=== PATIENT | female | born 1960 | race Caucasian/White ===

== ENCOUNTER → 2017-10-01 10:24 | Outpatient (CLI) | payer OTHER, SELFPAY ==
--- NOTE | 2017-10-01 10:35 | RAD_ITS ---
STUDY: X-RAY - THORACIC SPINE REASON FOR EXAM: Female, 57 years old. Fall. Pain. TECHNIQUE: 3 view(s) of the thoracic spine were obtained. COMPARISON: None. FINDINGS: Normal kyphosis of the thoracic spine. There is no substantial scoliosis. There is multilevel endplate spondylosis of the thoracic vertebrae. Normal disc space heights. The soft tissue structures are unremarkable. RAD/Thoracic Spine 3 Views IMPRESSION: No acute abnormality. Electronically Signed: Manuelito Garcia MD at 18:09 EST , Service support ,
--- NOTE | 2017-10-01 10:35 | RAD_ITS ---
STUDY: X-RAY - LUMBAR SPINE REASON FOR EXAM: Female, 57 years old. Fall. Low back pain. TECHNIQUE: 3 view(s) of the lumbar spine were obtained. COMPARISON: None FINDINGS: Normal lumbar lordosis. Mild dextroconvex scoliosis.. There is a normal alignment of the vertebrae. There is multilevel endplate spondylosis of the lumbar vertebrae. Moderate narrowing of the disc at L5-S1. Mild disc narrowing at all other levels. No compression fractures. The soft tissue structures are unremarkable. RAD/Lumbar Spine 2 or 3 Views IMPRESSION: Relatively mild degenerative changes with no acute abnormality. Electronically Signed: Manuelito Garcia MD at 19:40 EST , Service support ,
--- NOTE | 2017-10-01 10:35 | RAD_ITS ---
STUDY: X-RAY - UNILATERAL RIBS ( LEFT ) WITH CHEST REASON FOR EXAM: Female, 57 years old. Fall. Pain. TECHNIQUE - RIBS: 4 view(s) of the ribs. TECHNIQUE - CHEST: Single frontal view of the chest. COMPARISON: 06/29/2014. FINDINGS - RIBS: Normal visualized ribs without a demonstrated fracture. FINDINGS - CHEST: The lungs are clear and expanded. There is no demonstrated pleural abnormality. Normal size heart. Normal mediastinum and chloé. Normal visualized pulmonary arteries. Normal visualized aortic arch and descending thoracic aorta. Normal visualized thoracic spine. Normal visualized ribs, clavicles, and shoulders. There is no demonstrated abnormality of the visualized soft tissue structures of the upper abdomen. RAD/Ribs Uni Min 3V w/PA Chest IMPRESSION: RIBS: Normal x-ray examination of the ribs. CHEST: Normal x-ray examination of the chest. Electronically Signed: Manuelito Garcia MD at 19:27 EST , Service support ,
== END ==
PROVIDERS: Family Provider Family Medicine Geriatric Medicine; PCP Family Medicine Geriatric Medicine; Visit Provider Family Medicine Geriatric Medicine
DX: M54.6 Pain in thoracic spine (principal); M54.5 Low back pain; R07.89 Other chest pain; W19.XXXA Unspecified fall, initial encounter
CPT/HCPCS: 71101; 72072; 72100

== ENCOUNTER 2017-12-24 07:18 | Outpatient (RCR) | payer OTHER, SELFPAY ==
--- NOTE | 2017-12-24 10:47 | HP.FCE ---
HP OT Functional Capacity Eval - Task Lift Floor (Occasional 1-33% of Day): 35 lbs Floor (Frequent 34-66% of Day): 18 lbs Floor (Constant 67-100% of Day): 7 lbs Floor PDL: Light-Medium Knee (Occasional 1-33% of Day): 35 lbs Knee (Frequent 34-66% of Day): 18 lbs Knee (Constant 67-100% of Day): 7 lbs Knee PDL: Light-Medium Waist (Occasional 1-33% of Day): 35 lbs Waist (Frequent 34-66% of Day): 18 lbs Waist (Constant 67-100% of Day): 7 lbs Waist PDL: Light-Medium Shoulder (Occasional 1-33% of Day): 25 lbs Shoulder (Frequent 34-66% of Day): 12.5 lbs Shoulder (Constant 67-100% of Day): negligible Shoulder PDL: Light Overhead (Occasional 1-33% of Day): 25 lbs Overhead (Frequent 34-66% of Day): 12.5 lbs Overhead (Constant 67-100% of Day): negligible Overhead PDL: Light Comments: Given the performance of the lifting section of this test, Margareth is able to complete light to medium light work at this time. Body mechanics are variable and pain increased with lifting tasks. - Work Activity/Posture Bending: Frequent Ability (34-66% of day) Comments: 34-35%; bending increased pain and should be kept to minimum. Squatting: Frequent Ability (34-66% of day) Comments: 34-40%; increased pain. Kneeling: No Ablility (0% of day) Reaching out: Frequent Ability (34-66% of day) Reaching up: Frequent Ability (34-66% of day) Sitting: Frequent Ability (34-66% of day) Walking: Frequent Ability (34-66% of day) Standing: Frequent Ability (34-66% of day) - Reference Duration Sedentary Sedentary Light Light Light Medium Medium Medium Heavy Very Heavy Heavy Occasional (0-33% of day) Frequent (34-66% of day) Constant (67-100% of day) 10 # Negligible Negligible 15 # 8 # Negligible 20 # 10# Negli. 35 # 18 # 7 # 50 # 25 # 10 # 75 # 100 # >100 # 38 # 50 # >50 # 15 # 20 # >20 # - Patient Information Height: 1.7 m Weight:: 260 kg Hand Dominance: R - Medical History Medical History Including Restrictions: Noted that for work Dr. Jaramillo has 20 lbs weight restriction for work. She noted that restriction isn't applicable today as Dr. Jaramillo wants to know how much she can do. - Diagnoses Diagnoses: PMHx: compression fracture at T12, L rotator cuff tear (February 2017 and has been recieving steroid injections because trying not to get surgery), DM II with neuropathy, HPL, HTN. - Symptoms Symptoms: Symptoms started October Pt. had fall in bathroom which resulted in T12 compression fracture. Her main symptoms are pain and muscle spasms in mid to low back. She notes that sometimes the spasms feel like tight band and other times go toward buttocks. Notes has increased numbness and tingling of B feet but also has neuropathy and noted difficulty noted difference between neuropathy and back symptoms. - Pain Pain: Pain at rest sitting 0-1/10. 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 She notes that she is back to work and return December 09. She notes she is currently on light duty and FCE is to further determine lifiting ability at this time. She explained she has to lift between 20-70 lbs regualrly at work. She notes that she is required to lift up to 70 lbs, and she notes she averages 5-45 lbs. - Behavioral Behavioral: Margareth was pleasant and cooperative. She was willing to try her best within her pain tolerance. She noted that she has not recieved PT services for this injury. Would potentially benefit from PT at this time. - ADLS ADLS: Margareth resides in one story home with basement. Notes she does not access basement. She has 3-4 steps to get in front door. Once in home she has FFSU. She has regular tub with shower with suction grab bars. She is able to stand for showers. She noted that she is completing all ADl/IADLs independently. She is still grocery shopping short distances or online. She notes she is unable to walk through [employer] and goes to local [employer] for milk and bread. Still driving and notes she walks 1/8 mile to work. Explained if 'really' hurting will drive down because she noted she knows it will be worse when getting off work. - Physical Examination Physical Examination: Pt., Margareth, arrived for E on this date. She noted she was trying to get baseline of what she can vs. cannot do at work. She noted that she has fall November 16, 2017 that resulted in compression fracture of T12 vertebrae. She noted that she has not received PT services and is currently working on light duty. Performance on today's tasks shows she is able to complete medium light to light work related tasks. Pain increased from 4-6/10 pain through out session and she was consistently educated to completed tasks as tolerated. She typcially stands for long periods while working at post office. She would potentially benefit from PT for body masker training and/or aqua therapy program to help decreased back pain and spasms. Pain is limiting at this time and she should not exceed listed categorized work for light to medium light at this time due to further risk of compromising spinal integrity. ROM: BUE: WNL. BLE: WFL. No pain noted with ROM screening movements. Strength: BUE strength MMT: deltoid: R 4+/5; L 4+/5. bicep: R 4+/5; L 4+/5. triceps: R 4+/5; L 4+/5. wrist extension: R 4+/5; L 4+/5. BLE: quadraceps: R 4/5; L 4/5. hamstrings: R 4+/5; L 4+/5. hip adductors: R 4+/5; L 4+/5. hip abductors: R 4+/5; L 4+/5. plantarflexion: R 4+/5; L 4+/5. dorisflexion: R 4+/5; L 4+/5 Right Asp Net Programmer Strength Average: 59.66 Right Asp Net Programmer Strength Percentile: 32nd Left Asp Net Programmer Strength Average: 56.66 Left Asp Net Programmer Strength Percentile: 24 th Right Lateral Pinch Average: 12.66 Right Lateral Pinch Percentile: 50th Left Lateral Pinch Average: 12.33 Left Lateral Pinch Percentile: above 50th but below 75th Right Tripod Pinch Average: 12.33 Right Tripod Pinch Percentile: above 50th but below 75th Left Tripod Pinch Average: 11.00 Left Tripod Pinch Percentile: 50th Sensation: Sensation decreased secondary to neuropathy in B LE. B UE tested through monofilament touch test and is as follows: R: 2nd 2.83 , 3rd 2.83, 4th 3.22, 5th 3.22, thumb 3.22. L: 2nd 3.22 , 3rd 3.22 , 4th 3.22 ,5th 2.83 ,thumb 3.22. Scores indicated WNL for B Hands. Fine Motor: FMC is intact and WNL. Balance: Balance is good/fair+ at this time. She exhibits need for external support when standing on 1x foot but is WFL. - Non Material Handling Activities Bendinx, pain in back to 4/10, 10x , pain in back increased to 5/10 shairt standing break, and 10x quick. Pt. exhibits fair-good body mechanics. Needs to complete at decreased speed. Increased pain noted through repetitions. Pain limiting at this time. Recommedned limited bend for job based on performance. Squattinx, 10x, 10x fast short seated break prior to continuing. Completed with good body mechanics and adequet RICHELLE, knee flexion, and slight trunk flexion with spinal alignment. Kneelinx,10x. poor body mechanics. Not recommended to be completing at this time. Pain in back increased to 6/10. Notes increased pulling to L side. Seated break after task. Pain limiting at this time. Reaching out/up: from standing position: reaching out: 3x,10x, 10x fast. Good body mechanics. Noted no increased in pain. Pain consistent at 4/10. Reaching up: 3x,10x, 10x fast. Good body mechanics. Noted no increased in pain. Pain consistent at 4/10. Nots some increased pulling. Seated break post completion of tasks. Walking: completed 15 mins of consistently walking. Exhibited antaglic gait. Notes she used to walk a couple times a week but is unable to complete now due to moving to new location and back pain. Completed fx mobility of 6 laps around facility at decreased pace. Totaling 340 feet per lap and 2,040 feet for 6 total laps. With additional walking in and out of OT. Standing: Able to stand for 15 consistent mins during dynamic tasks and 10 mins for static at table top. Is required to stand approximately 8 hours per day and has been completing since back to work. She noted that she can sit sporatically throughout the day. Sitting: Able to tolerate sitting for 30-40 mins. Could have sat longer. She noted that most comfortable position is reclined. Climbing Stairs: Able to complete acending and decending of 10 stairs. She exhibits alternating foot patern with antalgic gait for ascending 10 stairs and used R foot lead to decend 1x stair at a time and use of B handrails. - Dynamic Occasional Lifting Capacity Floor Lift: 35 lbs. Fair body mechanics. Cues to lift with legs and not arms. Completed Pain 6/10. Performance classifies her at medium light work. Knee Lift: 35 lbs. Fair body mechanics as exhibited through increased lifting with straight legs,increased thoraric flexion and decreased spinal alignment. Some increased twisting noted of low back for placement of object in desired location. Pain at 6/10. Performance classifies her at medium light work. Pain is limiting at this time. Waist Lift: 35 lbs. Poor body mechanics as exhibited through increased lifting with straight legs, increased thoraric flexion and decreased spinal alignment. Some increased twisting noted of low back for placement of object in desired location. Pain 6/10. Performance classifies her at medium light work. Pain is limiting at this time. Standing break prior to continuing. Shoulder Lift: 25 lbs. Completed with fair body mechanics. Increased compesantions noted. Pain 6/10. Overhead Lift: 25 lbs. Poor body mechanics. Increased holding of breath, increased trunk extension, and rasing to tip toes. Pain 6/10. Performance classifies at light work at this time. Carryin lbs. Completed with fair body mechanics. Increased trunk ext noted. Pain 6/10 during tasks. Performance classifies at light work at this time.
--- NOTE | 2017-12-24 10:47 | HP.OTFCE.D ---
FCE D/C Summary - Discharge LATISHA J GALINA was seen for a one time visit for an FCE on 12/24/17 and is discharged.
== END 2017-12-24 19:00 | disposition home or self-care (01) ==
LOC: OT 07:18
PROVIDERS: Family Provider Family Medicine Geriatric Medicine; PCP Family Medicine Geriatric Medicine; Visit Provider Anesthesiology Pain Medicine
DX: M54.9 Dorsalgia, unspecified (principal)
CPT/HCPCS: 97750

== ENCOUNTER → 2017-12-24 11:37 | Outpatient (CLI) | payer OTHER, SELFPAY ==
[2017-12-24 12:31] LABS: Absolute Lymphocyte Count 2.52 X10^3/ul (0.83-4.51); Absolute Neutrophil Count 7.5 X10^3/uL (2.0-7.7); Basophil# 0.02 X10^3/uL; Basophil% 0.2 % (0-1); Eosinophil# 0.08 X10^3/uL; Eosinophils% 0.7 % (0-5); Hematocrit 44.8 % (37-47); Hemoglobin 14.2 g/dl (12.0-15.0); Lymphocyte # 2.52 X10^3/ul (4.0); Lymphocyte % 23.5 % (19-41); Mean Corp Hgb Conc 31.7 g/gl (32-36); Mean Corpuscular Hgb 29.8 pg (27.0-32.0); Mean Corpuscular Volume 93.9 fL (81-99); Mean Platelet Vol. 10.8 fl (6.2-12.0); Monocyte% 5.6 % (0-10); Neutrophil # 7.47 X10^3/uL (2.7-7.7); Neutrophil % 69.5 % (47-70); POSITIVE COUNT NO; POSITIVE DIFFERENTIAL NO; POSITIVE MORPHOLOGY NO; Platelet Count 295 K/mm3 (150-450); RBC Distribution Width CV 14.6 % (11.6-14.6); RBC Distribution Width SD 48.4 fl (35.1-43.9); Red Blood Count 4.77 M/mm3 (4.2-5.4); White Blood Count 10.7 K/mm3 (4.4-11.0)
[2017-12-24 12:54] LABS: AST(SGOT) 16 U/L (15-37); Alanine Aminotransfer ALT/SGPT 32 U/L (13-56); Albumin, Serum 3.5 g/dL (3.2-5.0); Alkaline Phosphatase 95 U/L (45-117); Anion Gap 8 (5-15); BUN 14 mg/dL (7-18); BUN/Creat Ratio 14.7 RATIO (10-20); Calcium,Total 8.5 mg/dL (8.5-10.1); Chloride 106 mmol/L (98-107); Creatinine, Serum 0.95 mg/dL (0.55-1.02); EST Glomerular Filtration Rate 64 mL/min (>60); Est Glom Filt Rate - Afr Amer 78 mL/min (>60); Globulin 3.6 g/dL (2.2-4.2); Glucose 155 mg/dL (74-106); Protein, Total 7.1 g/dL (6.4-8.2); Sodium Level 141 mmol/L (136-145); Thyroid Stim Hormone (TSH) 1.95 uIU/mL (0.358-3.74)
[2017-12-25 08:46] LABS: Vitamin D,25 Hydroxy 28.2 ng/mL (29.95-100.01)
== END ==
PROVIDERS: Family Provider Family Medicine Geriatric Medicine; PCP Family Medicine Geriatric Medicine; Visit Provider Family Medicine Geriatric Medicine
DX: I10 Essential (primary) hypertension (principal); E11.9 Type 2 diabetes mellitus without complications; E55.9 Vitamin D deficiency, unspecified
CPT/HCPCS: 36415; 80053; 82306; 84443; 85025

== ENCOUNTER → 2018-02-04 14:50 | Outpatient (CLI) | payer OTHER, SELFPAY ==
--- NOTE | 2018-02-04 14:54 | RAD_ITS ---
STUDY: X-RAY - LUMBAR SPINE REASON FOR EXAM: Female, 57 years old. Back pain. Recent T12 kyphoplasty. TECHNIQUE: 2 view(s) of the lumbar spine were obtained. COMPARISON: October 01, 2017. FINDINGS: Mild convex right lumbar curvature unchanged. Minimal multilevel disc space narrowing with minimal marginal osteophytes at several levels in the lumbar spine. Postkyphoplasty changes T12.. RAD/Lumbar Spine 2 or 3 Views IMPRESSION: Stable mild degenerative changes of the lumbar spine. Postkyphoplasty changes T12. Electronically Signed: Reji Huntley MD at 8:01 EDT , Service support ,
--- NOTE | 2018-02-04 15:16 | RAD_ITS ---
STUDY: X-RAY - THORACIC SPINE REASON FOR EXAM: Female, 57 years old. Back pain and recent kyphoplasty T12. TECHNIQUE: 3 view(s) of the thoracic spine were obtained. COMPARISON: October 01, 2017. FINDINGS: Normal kyphosis of the thoracic spine. There is no substantial scoliosis. Post kyphoplasty changes T12 with mild anterior wedging of this vertebral body. Marginal osteophytes at several levels in the thoracic spine most prominent at T9-T10 unchanged. The soft tissue structures are unremarkable. RAD/Thoracic Spine 2 Views IMPRESSION: Multilevel degenerative changes of the thoracic spine which have remained stable. Post kyphoplasty changes T12. Electronically Signed: Reji Huntley MD at 8:03 EDT , Service support ,
== END ==
PROVIDERS: Family Provider Family Medicine Geriatric Medicine; PCP Family Medicine Geriatric Medicine; Visit Provider Anesthesiology Pain Medicine
DX: M54.9 Dorsalgia, unspecified (principal)
CPT/HCPCS: 72070; 72100

== ENCOUNTER 2018-04-02 10:00 | Outpatient (RCR) | payer OTHER, SELFPAY ==
--- NOTE | 2018-02-25 09:48 | HP.PTEVAL ---
Patient's Visit Information LATISHA MOJICA is a 57 year old F referred to Physical Therapy by Miky Jaramillo with a diagnosis of Back Pain. Date of Evaluation: 02/25/18 Physical Therapist: Kristi Cooper - Visit Plan Frequency: 2x /Week Duration: 4 Weeks Plan: Focus on core s/s- lifting mechanics for work. - Subjective Subjective: Fell at the end of October and had a compression fracture in her back. Getting up to go to the bathroom and has a small step and didn't make it over the ledge and she landed on the bathroom floor. 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 Current restriction is #20-30. Is currently light duty- she basically does the same thing she just has someone else lift if its heavy. Ultimate goal is to get back to full duty as quickly as possible. Is currently taking Tramadol and she does not want to be on pain medication. Had mild back pain with oa before the fall but nothing like it is now. After the kyphopasty she felt like someone stuck a board in her back. Worst: 6/10 Agg: bending forwards, lifting. Eases: home at lunch sits in her reclyner and puts her feet up Best: 0/10 at night when sitting in her chair. The pain is in the lower thoracic and lumbar spine- Has had radiating pain to the knee but it goes away quickly. Can walk out the radiating pain. N/T due to neuropathy no changes since the back. Describes the pain as dull and achy- feel like someone put something in her back to keeps her stiff. Sleep: not disturbed- belly or side sleeper. No loss or change of bowel/bladder. She was very active before the accident- working a lot and walking the trail. PMHx: HTN, high cholesterol, DM, appendix removal, pronation of the feet, heel spurs, plantar fascititis. Meds: potassium, propanolol, hydrochlorothiazide, vit d, ultram, celexa, levothyroxin, Tramadol, pyrothoazide. X-rays last taken February 04- CT Scan in [place] November 16. - Objective Posture: sitting/standing- poor- FH, RS, Increased kyphosis- can correct but does not maintain. Gait: toes turned outwards- decreased trunk rotation and arm swing- stiff- decreased nat. HR/TR: able with UE A. SLS: WS but unable to SLS without UE A- right easier than left. Sensation: WNL. Reflexes: intact. ROM: Lumbar: flexion: hands to mid santos with reports of pain (5/10) Extn: WNL but reports discomfort. SB: WNL with pain to the right (4/10), Rotation: decreased by 25% with no reports of pain. Hip/Knee/Ankle: WNL. Strength: core: poor, Hip: left: 4-/5 throughout right: 4/5 throughout, Knee: 4+/5, Ankle: 4+/5. Palpation: Tender along paraspinals from T8-L5 with discomfort along spinous processes. Special Test: slump- postive on the left. Flex: HS: mild restriction, Gastroc: mild restriction - Goals Goal 1:: Patient will be I with HEP and progression Goal Time Frame: 4-6 Weeks Goal 2:: Patient will maintain proper posture t/o tx session to demo increased core s/s. Goal Time Frame: 4-6 Weeks Goal 3:: Patient will lift #50 box safely from floor to waiste x 3 to simulate work activities Goal Time Frame: 4-6 Weeks Goal 4:: Patient will report 2/10 pain for 1 week Goal Time Frame: 4-6 Weeks - Rehabilitation Potential Physical Therapy Diagnosis: Patient presents with hypmobility- she has decreased ROM, strength/stabilization, flex and muscular endurance leading to poor posture and increased pain. Rehabilitation Potential: Fair - Anticipated Interventions Patient/Client Instruction: Educate patient on: Benefits of Fitness Program For the Purpose of:: To improve ability to perform ADL's Therapeutic Exercise to Include: Strength training, Endurance training, Balance training, Agility training, Body mechanics, Postural training, Flexibilty training, Gait and locomotor training, Dynamic Lumbar Stabilization, Scapular Strength/Stabilization For the Purpose of:: To improve muscle performance and motor function TENS: Yes Cryotherapy (ice pack, ice massage): Yes Thermo therapy (hot pack): Yes Ultrasound (thermal/non thermal): Yes For the Purpose of:: To decrease pain Thank you for the opportunity to evaluate your patient. For Medicare and Medicare HMO plans, please review the plan of care and approve it. It will need to be FAXED BACK to us at [phone] for Medicare purposes. Please let me know if there are questions or concerns regarding this plan of care. Physician Signature: Date:
--- NOTE | 2018-04-02 10:34 | HP.PTDCSUM ---
HP - PT D/C Summary It has been my pleasure to treat LATISHA MOJICA under orders from Miky Jaramillo, for the diagnosis of Back Pain for a total of 9 visit(s). Discharge Date: Please see the following information for a summary of their discharge status. - Subjective Subjective: Elmer reports that she is doing much better. At work last week she was hurting from carrying a big box. Worst: 3/10 at 3:00 in the afternoon after standing and lifting at work. Feels that she can continue HEP with no question. Has not been taking Tramadol and only Tylenol and Ibuprofen. - Pain LB Pain Intensity (Out of 10): 0 - Overall Improvement % Improvement: 90 - Objective Objective/Function: Posture: sitting/standing- poor- FH, RS, Increased kyphosis- can correct but does not maintain. Gait: wfl. HR/TR: able with UE A. SLS: 3 seconds bilaterally. Sensation: WNL. Reflexes: intact. ROM: Lumbar: flexion: hands to mid santos with reports of pain (2/10) Extn: WNL but reports discomfort. SB: WNL with pain to the right (2/10), Rotation: decreased by 25% with no reports of pain. Hip/Knee/Ankle: WNL. Strength: core: fair, Hip: left: 4/5 throughout right: 4+/5 throughout, Knee: 5/5, Ankle: 5/5. Palpation: Tender along paraspinals from T8-L5 with discomfort along spinous processes. Special Test: slump- postive on the left. Flex: HS: mild restriction, Gastroc: mild restriction - Goals Goal 1:: Patient will be I with HEP and progression Goal Progress: Goal Met Goal 2:: Patient will maintain proper posture t/o tx session to demo increased core s/s. Goal Progress: Progressing Goal 3:: Patient will lift #50 box safely from floor to waiste x 3 to simulate work activities Goal Progress: Progressing Goal 4:: Patient will report 2/10 pain for 1 week Goal Progress: Progressing - Plan Plan: Discharge to I HEP - D/C Information If there are questions or concerns regarding this patient's physical therapy, please feel free to call me at [phone]. Thank you for the referral of this patient. Sincerely, Kristi Cooper
== END 2018-04-02 10:39 | disposition home or self-care (01) ==
LOC: PT 10:00
PROVIDERS: Family Provider Family Medicine Geriatric Medicine; PCP Family Medicine Geriatric Medicine; Visit Provider Anesthesiology Pain Medicine
DX: M54.9 Dorsalgia, unspecified (principal)
CPT/HCPCS: 97110; 97162; 97164

== ENCOUNTER → 2018-06-30 13:07 | Outpatient (CLI) | payer OTHER, SELFPAY ==
[2018-06-30 14:37] LABS: Absolute Lymphocyte Count 2.07 X10^3/ul (0.83-4.51); Absolute Neutrophil Count 5.6 X10^3/uL (2.0-7.7); Basophil# 0.02 X10^3/uL; Basophil% 0.2 % (0-1); Eosinophil# 0.13 X10^3/uL; Eosinophils% 1.6 % (0-5); Hematocrit 42.8 % (37-47); Hemoglobin 13.2 g/dl (12.0-15.0); Lymphocyte # 2.07 X10^3/ul (4.0); Lymphocyte % 24.9 % (19-41); Mean Corp Hgb Conc 30.8 g/gl (32-36); Mean Corpuscular Volume 94.1 fL (81-99); Mean Platelet Vol. 10.9 fl (6.2-12.0); Monocyte# 0.47 X10^3/uL; Monocyte% 5.7 % (0-10); Neutrophil % 67.4 % (47-70); Platelet Count 269 K/mm3 (150-450); RBC Distribution Width CV 14.8 % (11.6-14.6); RBC Distribution Width SD 50.5 fl (35.1-43.9); Red Blood Count 4.55 M/mm3 (4.2-5.4); White Blood Count 8.3 K/mm3 (4.4-11.0)
[2018-06-30 14:39] LABS: POSITIVE COUNT NO; POSITIVE DIFFERENTIAL NO; POSITIVE MORPHOLOGY NO
[2018-06-30 14:46] LABS: Albumin, Serum 3.4 g/dL (3.2-5.0); BUN 10 mg/dL (7-18); BUN/Creat Ratio 11.2 RATIO (10-20); Creatinine, Serum 0.89 mg/dL (0.55-1.02); EST Glomerular Filtration Rate 69 mL/min (>60); Est Glom Filt Rate - Afr Amer 84 mL/min (>60); Glucose 137 mg/dL (74-106); Protein, Total 6.7 g/dL (6.4-8.2)
[2018-06-30 14:47] LABS: AST(SGOT) 14 U/L (15-37); Alanine Aminotransfer ALT/SGPT 26 U/L (13-56); Alkaline Phosphatase 110 U/L (45-117); Anion Gap 9 (5-15); Calcium,Total 8.7 mg/dL (8.5-10.1); Chloride 108 mmol/L (98-107); Globulin 3.3 g/dL (2.2-4.2); Potassium 3.9 mmol/L (3.5-5.1); Sodium Level 146 mmol/L (136-145); Thyroid Stim Hormone (TSH) 1.55 uIU/mL (0.358-3.74)
[2018-06-30 14:48] LABS: Vitamin D,25 Hydroxy 30.6 ng/mL (29.95-100.01)
== END ==
PROVIDERS: Family Provider Family Medicine Geriatric Medicine; PCP Family Medicine Geriatric Medicine; Visit Provider Family Medicine Geriatric Medicine
DX: E55.9 Vitamin D deficiency, unspecified (principal); I10 Essential (primary) hypertension
CPT/HCPCS: 36415; 80053; 82306; 84443; 85025

== ENCOUNTER → 2018-09-23 16:01 | Outpatient (CLI) | payer OTHER, SELFPAY ==
--- NOTE | 2018-09-23 16:05 | RAD_ITS ---
HISTORY: osteoarthritis of left knee, pain since fall several months ago COMPARISON: None FINDINGS: XR left knee 4 views No fracture, dislocation, or acute disease. Joint spaces appear preserved. The distal femoral metaphysis shows faint paracortical soft tissue calcification in the region of the proximal MCL compatible with old injury. Mild spurring of the anterior aspect of the patella both superiorly and inferiorly. The patellofemoral joint space appears preserved. No joint effusion. RAD/Knee 4 or More Views IMPRESSION: 1. No fracture or acute disease. 2. Old MCL injury is suggested. 3. Mild patellar spurring. at 0643 Reported and signed by: Margarito Mccormick MD Electronically Signed: Margarito Mccormick, at 6:42 EST Tel , Service support ,
--- NOTE | 2018-09-23 16:15 | RAD_ITS ---
HISTORY: left foot pain ever since fall several months ago COMPARISON: None FINDINGS: XR left foot 3 views No fracture, dislocation, or acute disease. Joint spaces appear preserved. No bony erosions. Large plantar calcaneal spur. No radiopaque foreign body. RAD/Foot min 3 Views IMPRESSION: 1. No fracture or acute disease. 2. Large plantar calcaneal spur. Otherwise negative exam. at 0637 Reported and signed by: Margarito Mccormick MD Electronically Signed: Margarito Mccormick, at 6:36 EST Tel , Service support ,
== END ==
PROVIDERS: Family Provider Family Medicine Geriatric Medicine; PCP Family Medicine Geriatric Medicine; Referring Provider Family Medicine Geriatric Medicine; Visit Provider Family Medicine Geriatric Medicine
DX: M17.9 Osteoarthritis of knee, unspecified (principal); M79.609 Pain in unspecified limb
CPT/HCPCS: 73564; 73630

== ENCOUNTER → 2018-12-23 16:20 | Outpatient (CLI) | payer OTHER, SELFPAY ==
[2018-12-23 17:27] LABS: Absolute Lymphocyte Count 2.13 X10^3/ul (0.83-4.51); Absolute Neutrophil Count 3.9 X10^3/uL (2.0-7.7); Basophil# 0.02 X10^3/uL; Basophil% 0.3 % (0-1); Eosinophil# 0.13 X10^3/uL; Eosinophils% 1.9 % (0-5); Hematocrit 39.7 % (37-47); Hemoglobin 12.2 g/dl (12.0-15.0); Lymphocyte # 2.13 X10^3/ul (4.0); Lymphocyte % 31.7 % (19-41); Mean Corp Hgb Conc 30.7 g/gl (32-36); Mean Corpuscular Hgb 28.5 pg (27.0-32.0); Mean Corpuscular Volume 92.8 fL (81-99); Mean Platelet Vol. 11.4 fl (6.2-12.0); Monocyte# 0.49 X10^3/uL; Monocyte% 7.3 % (0-10); Neutrophil # 3.93 X10^3/uL (2.7-7.7); Neutrophil % 58.7 % (47-70); Platelet Count 201 K/mm3 (150-450); RBC Distribution Width CV 14.8 % (11.6-14.6); RBC Distribution Width SD 48.7 fl (35.1-43.9); Red Blood Count 4.28 M/mm3 (4.2-5.4); White Blood Count 6.7 K/mm3 (4.4-11.0)
[2018-12-23 17:30] LABS: POSITIVE COUNT NO; POSITIVE DIFFERENTIAL NO; POSITIVE MORPHOLOGY NO
[2018-12-23 17:54] LABS: Vitamin D,25 Hydroxy 30.3 ng/mL (29.95-100.01)
[2018-12-23 18:29] LABS: AST(SGOT) 29 U/L (15-37); Alanine Aminotransfer ALT/SGPT 51 U/L (13-56); Albumin, Serum 3.3 g/dL (3.2-5.0); Alkaline Phosphatase 95 U/L (45-117); Anion Gap 8 (5-15); BUN 12 mg/dL (7-18); BUN/Creat Ratio 13.6 RATIO (10-20); Calcium,Total 8.3 mg/dL (8.5-10.1); Chloride 109 mmol/L (98-107); Creatinine, Serum 0.88 mg/dL (0.55-1.02); EST Glomerular Filtration Rate 70 mL/min (>60); Est Glom Filt Rate - Afr Amer 85 mL/min (>60); Globulin 3.2 g/dL (2.2-4.2); Glucose 129 mg/dL (74-106); Potassium 4.1 mmol/L (3.5-5.1); Protein, Total 6.5 g/dL (6.4-8.2); Sodium Level 145 mmol/L (136-145); Thyroid Stim Hormone (TSH) 2.02 uIU/mL (0.358-3.74)
== END ==
PROVIDERS: Family Provider Family Medicine Geriatric Medicine; PCP Family Medicine Geriatric Medicine; Visit Provider Family Medicine Geriatric Medicine
DX: E11.9 Type 2 diabetes mellitus without complications (principal); E55.9 Vitamin D deficiency, unspecified; I10 Essential (primary) hypertension
CPT/HCPCS: 36415; 80053; 82306; 84443; 85025

== ENCOUNTER → 2019-05-05 15:05 | Outpatient (CLI) | payer OTHER, SELFPAY ==
--- NOTE | 2019-05-05 15:10 | RAD_ITS ---
STUDY: X-RAY - LUMBAR SPINE REASON FOR EXAM: Female, 58 years old. Low back pain TECHNIQUE: 3 view(s) of the lumbar spine were obtained. COMPARISON: None FINDINGS: Normal lumbar lordosis. There is mild dextro scoliosis. There is a normal alignment of the vertebrae. Mild multilevel disc space narrowing and endplate spurring. Facet arthropathy at L4-5 and L5-S1 No acute fracture or subluxation. Old compression fractures of T12 status post kyphoplasty The soft tissue structures are unremarkable. RAD/Lumbar Spine 2 or 3 Views IMPRESSION: Scoliosis and degenerative change. No evidence for acute fracture or other significant bony pathology old compression fracture of T12 status post kyphoplasty Electronically Signed: Chavo Zapata MD at 15:54 EDT , Service support ,
--- NOTE | 2019-05-05 15:19 | RAD_ITS ---
STUDY: X-RAY - PELVIS AND BILATERAL HIPS REASON FOR EXAM: Female, 58 years old. Bilateral hip pain worse on the left TECHNIQUE: AP view of the pelvis.? 2 views of the right hip, and 2 views of the left hip were obtained. COMPARISON: None. FINDINGS: There is a non-specific bowel gas pattern. Normal visualized soft tissue structures. Normal bilateral iliac wings, sacroiliac joints and visualized sacrum. Normal bilateral superior and inferior pubic rami. Normal pubic symphysis. Normal bilateral ischial tuberosities. Normal visualized right femoral head. Superolateral acetabular spurring Normal right hip joint. Normal visualized left femoral head. Superolateral acetabular spurring. Normal left hip joint. RAD/Hips B/L min 2 views w/ Pelvis IMPRESSION: Mild degenerative changes of both hips. No acute fracture or other significant bony pathology. Electronically Signed: Chavo Zapata MD at 15:52 EDT , Service support ,
--- NOTE | 2019-05-05 15:28 | RAD_ITS ---
STUDY: X-RAY - THORACIC SPINE REASON FOR EXAM: Female, 58 years old. Back pain TECHNIQUE: 4 view(s) of the thoracic spine were obtained. COMPARISON: None. FINDINGS: Normal kyphosis of the thoracic spine. There is mild levo scoliosis. Old compression of T12 status post kyphoplasty. No evidence for acute fracture or subluxation.. Multilevel disc space narrowing and osteophytic spurring The soft tissue structures are unremarkable. RAD/Thoracic Spine 3 Views IMPRESSION: Scoliosis and degenerative changes. Old compression fracture of T12 status post kyphoplasty No evidence for acute fracture or other significant bony pathology. Electronically Signed: Chavo Zapata MD at 15:55 EDT , Service support ,
== END ==
PROVIDERS: Family Provider Family Medicine Geriatric Medicine; PCP Family Medicine Geriatric Medicine; Referring Provider Family Medicine Geriatric Medicine; Visit Provider Family Medicine Geriatric Medicine
DX: M54.5 Low back pain (principal); M25.559 Pain in unspecified hip
CPT/HCPCS: 72072; 72100; 73521

== ENCOUNTER → 2019-07-06 10:43 | Outpatient (CLI) | payer OTHER, SELFPAY ==
[2019-07-06 12:49] LABS: Absolute Lymphocyte Count 2.43 X10^3/uL (0.83-4.51); Absolute Neutrophil Count 5.4 X10^3/uL (2.0-7.7); Basophil# 0.03 X10^3/uL; Basophil% 0.3 % (0-1); Eosinophils% 1.2 % (0-5); Hematocrit 41.1 % (37-47); Hemoglobin 12.4 g/dL (12.0-15.0); Lymphocyte # 2.43 X10^3/ul (4.0); Lymphocyte % 28.1 % (19-41); Mean Corp Hgb Conc 30.2 g/dL (32-36); Mean Corpuscular Hgb 28.9 pg (27.0-32.0); Mean Corpuscular Volume 95.8 fL (81-99); Mean Platelet Vol. 10.7 fl (6.2-12.0); Monocyte# 0.57 X10^3/uL; Monocyte% 6.6 % (0-10); NRBC Flagged by Analyzer 0 % (0-5); Neutrophil # 5.44 X10^3/uL (2.7-7.7); Platelet Count 266 K/mm3 (150-450); RBC Distribution Width CV 14.1 % (11.6-14.6); RBC Distribution Width SD 49.5 fl (35.1-43.9); Red Blood Count 4.29 M/mm3 (4.2-5.4); White Blood Count 8.6 K/mm3 (4.4-11.0)
[2019-07-06 12:55] LABS: Vitamin D,25 Hydroxy 35.6 ng/mL (29.95-100.01)
[2019-07-06 13:29] LABS: ALB/GLOB Ratio 0.9 RATIO (0.9-2.4); AST(SGOT) 20 U/L (15-37); Alanine Aminotransfer ALT/SGPT 34 U/L (13-56); Albumin, Serum 3.4 g/dL (3.2-5.0); Alkaline Phosphatase 98 U/L (45-117); Anion Gap 7 (5-15); BUN 12 mg/dL (7-18); BUN/Creat Ratio 12.6 RATIO (10-20); Calcium,Total 8.7 mg/dL (8.5-10.1); Chloride 108 mmol/L (98-107); Creatinine, Serum 0.95 mg/dL (0.55-1.02); EST Glomerular Filtration Rate 64 mL/min (>60); Est Glom Filt Rate - Afr Amer 77 mL/min (>60); Globulin 3.6 g/dL (2.2-4.2); Glucose 123 mg/dL (74-106); Potassium 4.1 mmol/L (3.5-5.1); Sodium Level 142 mmol/L (136-145); Thyroid Stim Hormone (TSH) 1.27 uIU/mL (0.358-3.74)
== END ==
PROVIDERS: Family Provider Family Medicine Geriatric Medicine; PCP Family Medicine Geriatric Medicine; Visit Provider Family Medicine Geriatric Medicine
DX: E11.9 Type 2 diabetes mellitus without complications (principal); I10 Essential (primary) hypertension; E55.9 Vitamin D deficiency, unspecified
CPT/HCPCS: 36415; 80053; 82306; 84443; 85025

== ENCOUNTER → 2020-01-05 15:11 | Outpatient (CLI) | payer OTHER, SELFPAY ==
[2020-01-05 16:01] LABS: Absolute Lymphocyte Count 2.13 X10^3/uL (0.83-4.51); Absolute Neutrophil Count 4.9 X10^3/uL (2.0-7.7); Basophil# 0.02 X10^3/uL; Basophil% 0.3 % (0-1); Eosinophil# 0.09 X10^3/uL; Eosinophils% 1.2 % (0-5); Hematocrit 40.2 % (37-47); Hemoglobin 12.6 g/dL (12.0-15.0); Lymphocyte # 2.13 X10^3/ul (4.0); Lymphocyte % 27.8 % (19-41); Mean Corp Hgb Conc 31.3 g/dL (32-36); Mean Corpuscular Hgb 29.2 pg (27.0-32.0); Mean Corpuscular Volume 93.3 fL (81-99); Mean Platelet Vol. 10.6 fl (6.2-12.0); Monocyte# 0.56 X10^3/uL; Monocyte% 7.3 % (0-10); NRBC Flagged by Analyzer 0 % (0-5); Neutrophil # 4.85 X10^3/uL (2.7-7.7); Neutrophil % 63.1 % (47-70); Platelet Count 283 K/mm3 (150-450); RBC Distribution Width CV 14.2 % (11.6-14.6); RBC Distribution Width SD 48.8 fl (35.1-43.9); Red Blood Count 4.31 M/mm3 (4.2-5.4); White Blood Count 7.7 K/mm3 (4.4-11.0)
[2020-01-05 16:18] LABS: Vitamin D,25 Hydroxy 28.5 ng/mL
[2020-01-05 16:24] LABS: AST(SGOT) 23 U/L (15-37); Alanine Aminotransfer ALT/SGPT 38 U/L (13-56); Albumin, Serum 3.5 g/dL (3.2-5.0); Alkaline Phosphatase 108 U/L (45-117); Anion Gap 8 (5-15); BUN 16 mg/dL (7-18); Calcium,Total 8.9 mg/dL (8.5-10.1); Chloride 107 mmol/L (98-107); EST Glomerular Filtration Rate 60 mL/min (>60); Est Glom Filt Rate - Afr Amer 73 mL/min (>60); Globulin 3.5 g/dL (2.2-4.2); Glucose 135 mg/dL (74-106); Potassium 3.8 mmol/L (3.5-5.1); Sodium Level 144 mmol/L (136-145); Thyroid Stim Hormone (TSH) 0.28 uIU/mL (0.358-3.74)
== END ==
PROVIDERS: PCP Family Medicine Geriatric Medicine; Visit Provider Family Medicine Geriatric Medicine
DX: E11.9 Type 2 diabetes mellitus without complications (principal); E55.9 Vitamin D deficiency, unspecified; I10 Essential (primary) hypertension
CPT/HCPCS: 36415; 80053; 82306; 84443; 85025

== ENCOUNTER 2020-06-28 09:30 | Outpatient (RCR) | payer OTHER, SELFPAY ==
[2020-05-26 10:51] VITALS: BMI 42.0
--- NOTE | 2020-06-07 13:52 | HP.OTEVAL ---
Patient's Visit Information LATISHA MOJICA is a 59 year old F, referred to Occupational Therapy by Dr. Kallie Vela DO, with a diagnosis of left medial epicondylitis, ulnar. Date of Evaluation: 06/07/20 Occupational Therapist: Ana Castañeda, RAMANA/Edy, CHT - Subjective This 59 year old female was seen for OT eval with dx of left medial epicondylitis, golfers elbow, left elbow nuritis- pt states this has been bothering her for awhile about two months and continues to struggle with picking up boxes at work. pt works at [employer] and struggles with pain when lifting boxes at times. pt would like to decrease her pain and return to her PLOF. 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 with ADLs and IADls by d/c Goal:: pt will report no pain of left elbow with use of left UE with ADls and IADls by d/c Goal:: pt will demo understanding of medial epi precautions with lifting. 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 with ADLs and IADls. Pt would benefit from skilled OT services 2xweek for 4 weeks. Today thearpsit ed. pt on dx, wrist ergo, and why need of wrist brace during the day and nigth elbow brace to prevent prolonged elbow flex while sleeping. Pt demo understanding. therapist ed. pt on forearm stretches, ulnar nerve glides and ice jackelyn. pt demo understanding and agree to POC. Rehabilitation Potential: Good - Anticipated Interventions A/AAROM/PROM, Strengthening, Modalities, Orthoses, Joint Protection/Energy Conservation, Ergonomic Education - Visit Plan Frequency: 2x /Week Duration: 4 Weeks TEXT: Thank you for the opportunity to evaluate your patient. For Medicare and Medicare HMO plans, please review the plan of care and approve it. It will need to be FAXED BACK to us at [phone] for Medicare purposes. Please let me know if there are questions or concerns regarding this plan of care. Physician Signature: Date:
--- NOTE | 2020-06-28 09:56 | HP.OTDCSUM_ITS ---
It has been my pleasure to treat LATISHA MOJICA under orders from Dr. Kallie Vela DO, for the diagnosis of left medial epicondylitis, ulnar for a total of 4 visit(s). Please see the following information for a summary of their discharge status. 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 right 10# lateral pinch left is 12#. right tripod pinch 12# and left 12# pt demo left elbow ROM WNL. 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 with ADLs and IADls by d/c Goal:: pt will report no pain of left elbow with use of left UE with ADls and IADls by d/c Goal:: pt will demo understanding of medial epi precautions with lifting. Plan: pt to cont. with HEP Discharge Comments: pt completed 4 OT session- we therapy used US, and work ergo. to decrease pts pain and increase pts healing- pt still using wrist brace to prevent repettative wrist flexion with lifting boxes. pt reports she is 90% better and is ind. with ADls and IADLs at this time. Pt to cont with HEP of isometric, use of brace as needed- elbow limitation brace while sleeping to prevent prolonged bending of elbow and ice/heat as needed- pt to cont with HEP and agree to POC of D/C If there are questions or concerns regarding this patient's occupational therapy, please fell free to call me at [phone]. Thank you for the referral of this patient. Sincerely, Ana Castañeda, OTR/L, CHT
== END 2020-06-28 19:00 | disposition home or self-care (01) ==
LOC: OT 09:30
PROVIDERS: PCP Family Medicine Geriatric Medicine; Referring Provider Orthopaedic Surgery; Visit Provider Orthopaedic Surgery
DX: M77.02 Medial epicondylitis, left elbow (principal)
CPT/HCPCS: 97035; 97110; 97140; 97166; 97530

== ENCOUNTER → 2020-07-07 09:16 | Outpatient (CLI) | payer OTHER, SELFPAY ==
[2020-05-26 10:51] VITALS: BMI 42.0
[2020-07-07 12:39] LABS: Absolute Lymphocyte Count 1.65 X10^3/uL (0.83-4.51); Absolute Neutrophil Count 3.2 X10^3/uL (2.0-7.7); Basophil# 0.03 X10^3/uL; Basophil% 0.6 % (0-1); Eosinophil# 0.11 X10^3/uL; Eosinophils% 2.1 % (0-5); Hematocrit 40.6 % (37-47); Hemoglobin 12.2 g/dL (12.0-15.0); Lymphocyte # 1.65 X10^3/ul (4.0); Lymphocyte % 31.1 % (19-41); Mean Corpuscular Volume 93.3 fL (81-99); Mean Platelet Vol. 11.1 fl (6.2-12.0); Monocyte# 0.32 X10^3/uL; NRBC Flagged by Analyzer 0 % (0-5); Neutrophil # 3.15 X10^3/uL (2.7-7.7); Neutrophil % 59.3 % (47-70); Platelet Count 245 K/mm3 (150-450); RBC Distribution Width CV 15.9 % (11.6-14.6); RBC Distribution Width SD 54.2 fl (35.1-43.9); Red Blood Count 4.35 M/mm3 (4.2-5.4); White Blood Count 5.3 K/mm3 (4.4-11.0)
[2020-07-07 13:00] LABS: Vitamin D,25 Hydroxy 27.4 ng/mL
[2020-07-07 13:07] LABS: ALB/GLOB Ratio 1.1 RATIO (0.9-2.4); AST(SGOT) 21 U/L (15-37); Alanine Aminotransfer ALT/SGPT 32 U/L (13-56); Albumin, Serum 3.5 g/dL (3.2-5.0); Alkaline Phosphatase 97 U/L (45-117); Anion Gap 5 (5-15); BUN 11 mg/dL (7-18); BUN/Creat Ratio 11.7 RATIO (10-20); Calcium,Total 8.7 mg/dL (8.5-10.1); Chloride 107 mmol/L (98-107); Creatinine, Serum 0.94 mg/dL (0.55-1.02); EST Glomerular Filtration Rate 65 mL/min (>60); Est Glom Filt Rate - Afr Amer 78 mL/min (>60); Globulin 3.3 g/dL (2.2-4.2); Glucose 204 mg/dL (74-106); Potassium 3.6 mmol/L (3.5-5.1); Protein, Total 6.8 g/dL (6.4-8.2); Sodium Level 140 mmol/L (136-145); Thyroid Stim Hormone (TSH) 3.49 uIU/mL (0.358-3.74)
== END ==
PROVIDERS: PCP Family Medicine Geriatric Medicine; Visit Provider Family Medicine Geriatric Medicine
DX: E11.9 Type 2 diabetes mellitus without complications (principal); E55.9 Vitamin D deficiency, unspecified; I10 Essential (primary) hypertension
CPT/HCPCS: 36415; 80053; 82306; 84443; 85025

== ENCOUNTER → 2020-12-22 16:39 | Outpatient (CLI) | payer OTHER, SELFPAY ==
[2020-05-26 10:51] VITALS: BMI 42.0
--- NOTE | 2020-12-22 16:42 | RAD_ITS ---
STUDY: X-RAY - THORACIC SPINE REASON FOR EXAM: Female, 60 years old. LOW BACK PAIN TECHNIQUE: 3 view(s) of the thoracic spine were obtained. COMPARISON: Comparison is made with prior examination dated 05/05/2019. FINDINGS: Normal kyphosis of the thoracic spine. There is no substantial scoliosis. There is multilevel endplate spondylosis of the thoracic vertebrae. There is multilevel disc space narrowing of the thoracic spine. The patient is status post vertebroplasty of the T12 vertebrae. The soft tissue structures are unremarkable. RAD/Thoracic Spine 2 Views IMPRESSION: Multilevel disc space narrowing and spondylosis. Stable vertebroplasty of the T12 vertebrae. Electronically Signed: Cali Owens MD at 15:18 EDT , Service support ,
--- NOTE | 2020-12-22 16:45 | RAD_ITS ---
STUDY: X-RAY - LUMBAR SPINE REASON FOR EXAM: Female, 60 years old. LOW BACK PAIN TECHNIQUE: 3 view(s) of the lumbar spine were obtained. COMPARISON: Comparison is made with prior study dated 05/05/2019. FINDINGS: Normal lumbar lordosis. There is no substantial scoliosis. There is a normal alignment of the vertebrae. There is multilevel endplate spondylosis of the lumbar vertebrae. There is multi-level degenerative disc disease with multi-level disc space narrowing. Once again, the patient is status post vertebroplasty of the T12 vertebrae. Stable loss of height of the vertebrae. There is a 1.3 cm rounded calcification in the right hemipelvis. This most likely represents a small calcified fibroid. RAD/Lumbar Spine 2 or 3 Views IMPRESSION: Degenerative changes of the spine, as detailed above. Stable loss of height and vertebral plasty of the T12 vertebrae. Electronically Signed: Cali Owens MD at 14:58 EDT , Service support ,
== END ==
PROVIDERS: PCP Family Medicine Geriatric Medicine; Referring Provider Family Medicine Geriatric Medicine; Visit Provider Family Medicine Geriatric Medicine
DX: M54.5 Low back pain (principal)
CPT/HCPCS: 72070; 72100

== ENCOUNTER → 2021-01-05 09:35 | Outpatient (CLI) | payer OTHER, SELFPAY ==
[2020-05-26 10:51] VITALS: BMI 42.0
[2021-01-05 12:33] LABS: Absolute Lymphocyte Count 2.07 X10^3/uL (0.83-4.51); Absolute Neutrophil Count 4.8 X10^3/uL (2.0-7.7); Basophil# 0.03 X10^3/uL; Basophil% 0.4 % (0-1); Eosinophil# 0.13 X10^3/uL; Eosinophils% 1.7 % (0-5); Hematocrit 42.3 % (37-47); Hemoglobin 13.2 g/dL (12.0-15.0); Lymphocyte # 2.07 X10^3/ul (0.83-4.51); Lymphocyte % 27.6 % (19-41); Mean Corp Hgb Conc 31.2 g/dL (32-36); Mean Platelet Vol. 10.6 fl (6.2-12.0); Monocyte% 5.3 % (0-10); NRBC Flagged by Analyzer 0 % (0-5); Neutrophil # 4.83 X10^3/uL (2.7-7.7); Neutrophil % 64.6 % (47-70); Platelet Count 246 K/mm3 (150-450); RBC Distribution Width CV 14.6 % (11.6-14.6); RBC Distribution Width SD 50.1 fl (35.1-43.9); Red Blood Count 4.55 M/mm3 (4.2-5.4); White Blood Count 7.5 K/mm3 (4.4-11.0)
[2021-01-05 12:48] LABS: Vitamin D,25 Hydroxy 20.1 ng/mL
[2021-01-05 12:56] LABS: AST(SGOT) 15 U/L (15-37); Alanine Aminotransfer ALT/SGPT 29 U/L (13-56); Albumin, Serum 3.4 g/dL (3.2-5.0); Alkaline Phosphatase 92 U/L (45-117); Anion Gap 6 (5-15); BUN 20 mg/dL (7-18); BUN/Creat Ratio 23.3 RATIO (10-20); Calcium,Total 9.1 mg/dL (8.5-10.1); Chloride 106 mmol/L (98-107); Creatinine, Serum 0.86 mg/dL (0.55-1.02); EST Glomerular Filtration Rate 72 mL/min (>60); Est Glom Filt Rate - Afr Amer 87 mL/min (>60); Globulin 3.3 g/dL (2.2-4.2); Glucose 174 mg/dL (74-106); Protein, Total 6.7 g/dL (6.4-8.2); Sodium Level 141 mmol/L (136-145); Thyroid Stim Hormone (TSH) 2.68 uIU/mL (0.358-3.74)
== END ==
PROVIDERS: PCP Family Medicine Geriatric Medicine; Visit Provider Family Medicine Geriatric Medicine
DX: I10 Essential (primary) hypertension (principal); E11.9 Type 2 diabetes mellitus without complications; E55.9 Vitamin D deficiency, unspecified
CPT/HCPCS: 36415; 80053; 82306; 84443; 85025

== ENCOUNTER 2021-02-07 17:30 | Outpatient (RCR) | payer OTHER, SELFPAY ==
[2020-05-26 10:51] VITALS: BMI 42.0
--- NOTE | 2021-01-19 18:06 | HP.PTEVAL_ITS ---
Patient's Visit Information LATISHA MOJICA is a 60 year old F referred to Physical Therapy by Dr. Brayden Roblero MD with a diagnosis of LOW BACK PAIN. Date of Evaluation: 01/19/21 Physical Therapist: Ramos Betts, PT, Cert MDT, OCS - Visit Plan Frequency: 2x /Week Duration: 4 Weeks Plan: PT INTERVETIONS DLS ABD/BACK ,POSTURAL EX'S,LE FLEXABLITY /ROM AND MODALTIES NEEDED - Subjective This 60 y/o female presents to physical therapy with low back pain . Patient has had back pain many years . Located pain symmetrical LBP . Patient seen DR showed DDD. Aggravating lifting ,bending and standing. Alleviating rest AND meds. Patient was given initially given prednisone and naprozn . Did provide injection cortisone in knee. Coughing/sneezing-. Bowel/bladder-. Denies parathesia /tingling but does have neuropathy in feet. Patient has compression fracture back had kyphoplasty. Patient symptoms affects sleeping at night. Patient symptoms affects QOL and function and job demnads. SOCIAL: . VOCATION: [employer] - Pain Bilateral Back Pain Intensity (Out of 10): 4 Pain Intensity Range: 10 - Objective POSTURE: mild forward posture ,knee valgus calcaneal valgus ankle. GAIT: reciprocal pattern knee valgus antalgic gait right side. SYMMTRIES : align. PALAPTION: unremarkable. NEURO: C/O parathesia feet from neuopathy, reflexes 2/3 L3-4,L4-5,L5--S1. MMT: quads/hams right 4-/5 ,left 4/5, 4-/5,hip flexion ,hip abd 3+/5,ankle 4/5. AROM: right knee supine flexion 0-90 degrees ,left 0- 110 degrres. FLEXABLITY: hams mild tight - Special Tests L/S Slump test left side: Negative L/S Slump test right side: Negative L/S Left Straight Leg Raise: Negative L/S Right Straight Leg Raise: Negative Lumbar Standing: Flexion - Mechanical Response: No effect Lumbar Standing: Flexion - Symptoms During Testing: No effect Lumbar Standing: Flexion - Symptoms After Testing: No effect Lumbar Standing: Extension - Mechanical Response: No effect Lumbar Standing: Extension - Symptoms During Testing: Increases Lumbar Standing: Extension - Symptoms After Testing: No worse Lumbar Standing: Right Side Glides - Mechanical Response: No effect Lumbar Standing: Right Side [place] - Symptoms After Testing: No effect Lumbar Standing: Left Side [place] - Mechanical Response: No effect Lumbar Standing: Left Side [place] - Symptoms During Testing: No effect Lumbar Standing: Left Side [place] - Symptoms After Testing: No effect - Goals Goal 1:: I with HEP Goal Time Frame: 4-6 Weeks Goal 2:: Improve posture for ADLS' Goal Time Frame: 4-6 Weeks Goal 3:: Decrease Low Back pain by 50% or > To improve function Goal 4:: Patient to improve lumbar ROM for function of recovery Goal Time Frame: 4-6 Weeks Goal 5:: Patient to improve back owestry score by 5 points or > to improve QOL,. Goal Time Frame: 4-6 Weeks Goal 6:: Patient increase ROM right knee by 5-10 degrees to improve function - Rehabilitation Potential Physical Therapy Diagnosis: This patient has symmetrical lumbar pain with decrease ROM ,weakness core and postural muscle ,decrease ROM right knee impairs function and ADLS' with job demands thus benefit from skilled PT. Rehabilitation Potential: Good - Anticipated Interventions Patient/Client Instruction: Educate patient on: Condition, Plan of Care For the Purpose of:: To decrease pain, To increase ROM, To improve muscle performance and motor function, To improve ability to perform ADL's, To increase tolerance to activity/condition/position, To improve ability of physical actions for home/community/work/leisure, To increase flexibility/ROM, To improve ability to perform tasks related to life management Therapeutic Exercise to Include: Strength training, Endurance training, Body mechanics, Postural training, Passive ROM, Active ROM For the Purpose of:: To decrease pain, To increase ROM, To improve muscle performance and motor function, To improve ability to perform ADL's, To improve performance and independence with ADL's, To improve ability of physical actions for home/community/work/leisure, To increase flexibility/ROM, To improve endurance, To improve ability to perform tasks related to life management TENS: Yes IF ES: Yes Cryotherapy (ice pack, ice massage): Yes Thermo therapy (hot pack): Yes Ultrasound (thermal/non thermal): Yes For the Purpose of:: To decrease pain, To decrease swelling/inflammation, To improve nutrient delivery to tissue, To increase oxygenation perfusion, To improve health of tissue, To decrease soft tissue restriction Thank you for the opportunity to evaluate your patient. For Medicare and Medicare O plans, please review the plan of care and approve it. It will need to be FAXED BACK to us at [phone] for Medicare purposes. For Medicare only, by signing this I certify the plan of care. Please let me know if there are questions or concerns regarding this plan of care. Physician Signature: Date:
--- NOTE | 2021-04-12 14:29 | HP.PTDCNRP_ITS ---
LATISHA MOJICA was seen in my office for initial evaluation on 01/19/21. The following Plan of Care was established for this patient: Initial Frequency: 2x /Week Initial Duration: 4 Weeks Patient/Client Instruction: Educate patient on: Condition, Plan of Care For the Purpose of:: To decrease pain, To increase ROM, To improve muscle performance and motor function, To improve ability to perform ADL's, To increase tolerance to activity/condition/position, To improve ability of physical actions for home/community/work/leisure, To increase flexibility/ROM, To improve ability to perform tasks related to life management Therapeutic Exercise to Include: Strength training, Endurance training, Body mechanics, Postural training, Passive ROM, Active ROM For the Purpose of:: To decrease pain, To increase ROM, To improve muscle perfo rmance and motor function, To improve ability to perform ADL's, To improve performance and independence with ADL's, To improve ability of physical actions for home/community/work/leisure, To increase flexibility/ROM, To improve endurance, To improve ability to perform tasks related to life management TENS: Yes IF ES: Yes Cryotherapy (ice pack, ice massage): Yes Thermo therapy (hot pack): Yes Ultrasound (thermal/non thermal): Yes For the Purpose of:: To decrease pain, To decrease swelling/inflammation, To improve nutrient delivery to tissue, To increase oxygenation perfusion, To improve health of tissue, To decrease soft tissue restriction This patient was last seen in our office . Pertinent comments regarding their Physical therapy will appear below: Patient seen for PT pain cont ,thus had MRI FOR LOWER LEG At this point I will be discontinuing this patient from physical therapy. I would be happy to see this patient again in the future if found appropriate by the physician. Thank you! Ramos Betts, PT, Cert MDT, OCS Balance/Gait/Functional tests - Balance/Special Test Scores Oswestry Low Back Score: 12
== END 2021-02-07 19:00 | disposition home or self-care (01) ==
LOC: PT 17:30
PROVIDERS: PCP Family Medicine Geriatric Medicine; Referring Provider Family Medicine Geriatric Medicine; Visit Provider Family Medicine Geriatric Medicine
DX: M54.5 Low back pain (principal)
CPT/HCPCS: 97014; 97110; 97162; G0283

== ENCOUNTER → 2021-02-21 17:46 | Outpatient (CLI) | payer OTHER, SELFPAY ==
[2020-05-26 10:51] VITALS: BMI 42.0
--- NOTE | 2021-02-21 17:53 | MRI_ITS ---
STUDY: MRI RIGHT KNEE REASON FOR EXAM: Medial right knee pain for 2 months. TECHNIQUE: Standardized fat and water weighted pulse sequences were obtained in all 3 orthogonal planes. COMPARISON: None. FINDINGS: There is a small vertical tear of the posterior horn of the medial meniscus near the free margin (proton-density sagittal images 30-34). Normal hyaline cartilage of the medial femorotibial compartment. Normal medial femoral condyle and tibial plateau. Normal medial collateral ligamentous complex (MCL). Normal distal semimembranosus, gracilis and semitendinosus tendons. There is a small radial tear at the root of the posterior horn of the lateral meniscus (T2 coronal image 13). Normal hyaline cartilage of the lateral femorotibial compartment. Normal lateral femoral condyle and tibial plateau. Normal proximal tibiofibular articulation. Normal lateral collateral (fibular) ligament. Normal popliteus tendon. Normal biceps femoris tendon. Normal anterior cruciate ligament (ACL). Normal posterior cruciate ligament (PCL). Normal congruent patellofemoral articulation. Normal hyaline cartilage of the patellofemoral compartment. Normal medial and lateral patellar retinaculum. Normal visualized quadriceps tendon. Normal patellar tendon. Normal Hoffa''s fat pad. There is a small joint effusion. There is a popliteal cyst measuring approximately 4.2 cm in length (T2 sagittal images 15-18). There is edema in the anterior subcutis adipose space. The otherwise visualized osseous structures are unremarkable. MRI/Lower Ext Joint Only (Routine) IMPRESSION: Small medial meniscal tear. Small lateral meniscal tear. Small joint effusion. Popliteal cyst. Electronically Signed: Robb Downs MD at 9:21 EDT Tel , Service support ,
== END ==
PROVIDERS: PCP Family Medicine Geriatric Medicine; Referring Provider Family Medicine Geriatric Medicine; Visit Provider Family Medicine Geriatric Medicine
DX: M25.569 Pain in unspecified knee (principal)
CPT/HCPCS: 73721

== ENCOUNTER → 2021-05-23 13:39 | Outpatient (CLI) | payer OTHER, SELFPAY ==
--- NOTE | 2021-05-23 13:42 | RAD_ITS ---
INDICATION: HIP PAIN EXAMINATION/TECHNIQUE: X-RAY - LEFT XR Hip Unilateral with Pelvis when performed; 2-3 Views 3 VIEWS COMPARISON: 05/05/2019. FINDINGS: No soft tissue swelling or gas. No radiopaque foreign body. Degenerative bone changes seen. No acute fracture or subluxation.. Normal alignment. Preservation of the joint space.. No sclerotic or destructive changes observed. RAD/HIP, UNI W/ Pelvis 2-3 Views IMPRESSION: Degenerative changes, no acute osseous abnormality is seen. Electronically Signed: Steve Whitley MD at 8:29 EDT Tel , Service support ,
--- NOTE | 2021-05-23 13:43 | RAD_ITS ---
STUDY: X-RAY - LUMBAR SPINE REASON FOR EXAM: Female, 60 years old. HIP PAIN TECHNIQUE: 3 view(s) of the lumbar spine were obtained. COMPARISON: 12/22/2020 FINDINGS: Normal lumbar lordosis. There is no substantial scoliosis. There is a normal alignment of the vertebrae. There is diffuse demineralization with multi-level endplate spondylosis. There is multi-level degenerative disc disease with multi-level disc space narrowing. There is no acute fracture. Prior T12 vertebral augmentation. There is atherosclerotic calcification of the abdominal aorta without a demonstrated aneurysm. RAD/Lumbar Spine 2 or 3 Views IMPRESSION: No acute compression fracture. Degenerative changes, stable. Electronically Signed: Alessandro Dorman MD ([place]) at 14:24 EDT , Service support ,
== END ==
PROVIDERS: PCP Family Medicine Geriatric Medicine; Referring Provider Family Medicine Geriatric Medicine; Visit Provider Family Medicine Geriatric Medicine
DX: M25.559 Pain in unspecified hip (principal)
CPT/HCPCS: 72100; 73502

== ENCOUNTER → 2021-07-19 10:02 | Outpatient (CLI) | payer OTHER, SELFPAY ==
[2021-07-19 17:28] LABS: Absolute Lymphocyte Count 2.34 X10^3/uL (0.83-4.51); Absolute Neutrophil Count 5.4 X10^3/uL (2.0-7.7); Basophil# 0.04 X10^3/uL; Basophil% 0.5 % (0-1); Eosinophil# 0.08 X10^3/uL; Eosinophils% 0.9 % (0-5); Hematocrit 39.6 % (37-47); Hemoglobin 12.4 g/dL (12.0-15.0); Lymphocyte # 2.34 X10^3/ul (0.83-4.51); Lymphocyte % 27.7 % (19-41); Mean Corp Hgb Conc 31.3 g/dL (32-36); Mean Corpuscular Hgb 28.9 pg (27.0-32.0); Mean Corpuscular Volume 92.3 fL (81-99); Mean Platelet Vol. 10.5 fl (6.2-12.0); Monocyte% 7.1 % (0-10); NRBC Flagged by Analyzer 0 % (0-5); Neutrophil # 5.36 X10^3/uL (2.7-7.7); Neutrophil % 63.3 % (47-70); Platelet Count 274 K/mm3 (150-450); RBC Distribution Width CV 14.5 % (11.6-14.6); Red Blood Count 4.29 M/mm3 (4.2-5.4); White Blood Count 8.5 K/mm3 (4.4-11.0)
[2021-07-19 17:52] LABS: ALB/GLOB Ratio 0.9 RATIO (0.9-2.4); AST(SGOT) 16 U/L (15-37); Alanine Aminotransfer ALT/SGPT 24 U/L (13-56); Albumin, Serum 3.3 g/dL (3.2-5.0); Alkaline Phosphatase 103 U/L (45-117); Anion Gap 6 (5-15); BUN 20 mg/dL (7-18); Calcium,Total 8.8 mg/dL (8.5-10.1); Chloride 105 mmol/L (98-107); EST Glomerular Filtration Rate 60 mL/min (>60); Est Glom Filt Rate - Afr Amer 73 mL/min (>60); Globulin 3.7 g/dL (2.2-4.2); Glucose 122 mg/dL (74-106); Potassium 3.7 mmol/L (3.5-5.1); Sodium Level 142 mmol/L (136-145); Thyroid Stim Hormone (TSH) 2.64 uIU/mL (0.358-3.74)
== END ==
PROVIDERS: PCP Family Medicine Geriatric Medicine; Visit Provider Family Medicine Geriatric Medicine
DX: I10 Essential (primary) hypertension (principal); E11.9 Type 2 diabetes mellitus without complications; E55.9 Vitamin D deficiency, unspecified
CPT/HCPCS: 36415; 80053; 82306; 84443; 85025

== ENCOUNTER → 2021-12-05 | Outpatient (CLI) | payer OTHER, SELFPAY ==
--- NOTE | 2021-12-05 15:50 | RAD_ITS ---
STUDY: X-RAY - LUMBOSACRAL SPINE REASON FOR EXAM: Female, 61 years old. LOW BACK PAIN TECHNIQUE: 6 view(s) of the lumbosacral spine were obtained, including AP, lateral, bilateral oblique, and lateral views with flexion and extension. COMPARISON: Lumbar spine x-rays 05/23/2021. FINDINGS: Post vertebroplasty at T12. The other vertebral bodies are normal in height. No subluxation. Slight curvature convex right. Mild disc space narrowing and endplate changes at most levels. Facet arthropathy at most levels. Flexion and extension views demonstrate no significant subluxation. No paravertebral soft tissue mass identified. RAD/L/S Spine Comp/w Bending Views IMPRESSION: Degenerative changes. No subluxation with flexion or extension. T12 vertebroplasty. Electronically Signed: Nuzhat Tom MD at 5:50 EDT ,
== END | disposition home or self-care (01) ==
LOC: RAD 15:45
PROVIDERS: PCP Family Medicine Geriatric Medicine; Referring Provider Family Medicine Geriatric Medicine; Visit Provider Family Medicine Geriatric Medicine
DX: M54.50 Low back pain, unspecified (principal)
CPT/HCPCS: 72114

== ENCOUNTER → 2022-01-23 | Outpatient (CLI) | payer OTHER, SELFPAY ==
[2022-01-23 17:28] LABS: Absolute Lymphocyte Count 2.38 X10^3/uL (0.83-4.51); Absolute Neutrophil Count 7.6 X10^3/uL (2.0-7.7); Basophil# 0.05 X10^3/uL; Basophil% 0.5 % (0-1); Eosinophil# 0.17 X10^3/uL; Eosinophils% 1.6 % (0-5); Hematocrit 41.4 % (37-47); Hemoglobin 13.2 g/dL (12.0-15.0); Lymphocyte # 2.38 X10^3/ul (0.83-4.51); Mean Corp Hgb Conc 31.9 g/dL (32-36); Mean Corpuscular Hgb 29.3 pg (27.0-32.0); Mean Corpuscular Volume 91.8 fL (81-99); Mean Platelet Vol. 10.9 fl (6.2-12.0); Monocyte# 0.58 X10^3/uL; Monocyte% 5.4 % (0-10); NRBC Flagged by Analyzer 0 % (0-5); Neutrophil # 7.56 X10^3/uL (2.7-7.7); Neutrophil % 69.9 % (47-70); Platelet Count 259 K/mm3 (150-450); RBC Distribution Width CV 14.6 % (11.6-14.6); RBC Distribution Width SD 49.5 fl (35.1-43.9); Red Blood Count 4.51 M/mm3 (4.2-5.4); White Blood Count 10.8 K/mm3 (4.4-11.0)
[2022-01-23 18:00] LABS: AST(SGOT) 19 U/L (15-37); Alanine Aminotransfer ALT/SGPT 30 U/L (13-56); Albumin, Serum 3.3 g/dL (3.2-5.0); Alkaline Phosphatase 95 U/L (45-117); Anion Gap 9 (5-15); BUN 17 mg/dL (7-18); BUN/Creat Ratio 18.3 RATIO (10-20); Calcium,Total 8.7 mg/dL (8.5-10.1); Chloride 108 mmol/L (98-107); Creatinine, Serum 0.93 mg/dL (0.55-1.02); EST Glomerular Filtration Rate 65 mL/min (>60); Est Glom Filt Rate - Afr Amer 79 mL/min (>60); Globulin 3.4 g/dL (2.2-4.2); Glucose 173 mg/dL (74-106); Potassium 3.8 mmol/L (3.5-5.1); Protein, Total 6.7 g/dL (6.4-8.2); Sodium Level 143 mmol/L (136-145); Thyroid Stim Hormone (TSH) 1.52 uIU/mL (0.358-3.74)
== END | disposition home or self-care (01) ==
LOC: POLAB3 14:08
PROVIDERS: PCP Family Medicine Geriatric Medicine; Visit Provider Family Medicine Geriatric Medicine
DX: I10 Essential (primary) hypertension (principal); E11.65 Type 2 diabetes mellitus with hyperglycemia; E55.9 Vitamin D deficiency, unspecified
CPT/HCPCS: 36415; 80053; 82306; 84443; 85025

== ENCOUNTER → 2022-07-24 | Outpatient (CLI) | payer OTHER, SELFPAY ==
[2022-07-24 17:08] LABS: Absolute Lymphocyte Count 2.19 X10^3/uL (0.83-4.51); Absolute Neutrophil Count 8.2 X10^3/uL (2.0-7.7); Basophil# 0.04 X10^3/uL; Basophil% 0.4 % (0-1); Eosinophils% 0.9 % (0-5); Hematocrit 44.8 % (37-47); Hemoglobin 13.7 g/dL (12.0-15.0); Lymphocyte # 2.19 X10^3/ul (0.83-4.51); Lymphocyte % 19.4 % (19-41); Mean Corp Hgb Conc 30.6 g/dL (32-36); Mean Corpuscular Hgb 28.7 pg (27.0-32.0); Mean Corpuscular Volume 93.7 fL (81-99); Mean Platelet Vol. 10.8 fl (6.2-12.0); Monocyte% 6.2 % (0-10); NRBC Flagged by Analyzer 0 % (0-5); Neutrophil # 8.21 X10^3/uL (2.7-7.7); Neutrophil % 72.5 % (47-70); Platelet Count 326 K/mm3 (150-450); RBC Distribution Width CV 14.6 % (11.6-14.6); RBC Distribution Width SD 49.9 fl (35.1-43.9); Red Blood Count 4.78 M/mm3 (4.2-5.4); White Blood Count 11.3 K/mm3 (4.4-11.0)
[2022-07-24 17:47] LABS: Vitamin D,25 Hydroxy 23.1 ng/mL
[2022-07-24 18:28] LABS: ALB/GLOB Ratio 0.9 RATIO (0.9-2.4); AST(SGOT) 12 U/L (15-37); Alanine Aminotransfer ALT/SGPT 25 U/L (13-56); Albumin, Serum 3.4 g/dL (3.2-5.0); Alkaline Phosphatase 96 U/L (45-117); Anion Gap 6 (5-15); BUN 16 mg/dL (7-18); BUN/Creat Ratio 16.2 RATIO (10-20); Calcium,Total 9.1 mg/dL (8.5-10.1); Chloride 105 mmol/L (98-107); Creatinine, Serum 0.98 mg/dL (0.55-1.02); EST Glomerular Filtration Rate 61 mL/min (>60); Est Glom Filt Rate - Afr Amer 74 mL/min (>60); Globulin 3.6 g/dL (2.2-4.2); Glucose 94 mg/dL (74-106); Potassium 3.6 mmol/L (3.5-5.1); Sodium Level 141 mmol/L (136-145); Thyroid Stim Hormone (TSH) 1.62 uIU/mL (0.358-3.74)
== END | disposition home or self-care (01) ==
LOC: POLAB3 15:00
PROVIDERS: PCP Family Medicine Geriatric Medicine; Visit Provider Family Medicine Geriatric Medicine
DX: N39.0 Urinary tract infection, site not specified (principal); E11.9 Type 2 diabetes mellitus without complications; I10 Essential (primary) hypertension; E55.9 Vitamin D deficiency, unspecified
CPT/HCPCS: 36415; 80053; 82306; 84443; 85025; 87077; 87086; 87088; 87186

== ENCOUNTER → 2023-01-23 | Outpatient (CLI) | payer OTHER, SELFPAY ==
[2023-01-23 13:44] LABS: Absolute Lymphocyte Count 1.83 X10^3/uL (0.83-4.51); Absolute Neutrophil Count 4.3 X10^3/uL (2.0-7.7); Basophil# 0.04 X10^3/uL; Basophil% 0.6 % (0-1); Eosinophil# 0.12 X10^3/uL; Eosinophils% 1.8 % (0-5); Hematocrit 41.1 % (37-47); Hemoglobin 12.7 g/dL (12.0-15.0); Lymphocyte # 1.83 X10^3/ul (0.83-4.51); Lymphocyte % 27.4 % (19-41); Mean Corp Hgb Conc 30.9 g/dL (32-36); Mean Corpuscular Hgb 29.2 pg (27.0-32.0); Mean Corpuscular Volume 94.5 fL (81-99); Mean Platelet Vol. 11.1 fl (6.2-12.0); Monocyte# 0.42 X10^3/uL; Monocyte% 6.3 % (0-10); NRBC Flagged by Analyzer 0 % (0-5); Neutrophil # 4.25 X10^3/uL (2.7-7.7); Neutrophil % 63.6 % (47-70); Platelet Count 254 K/mm3 (150-450); RBC Distribution Width CV 13.9 % (11.6-14.6); RBC Distribution Width SD 48.2 fl (35.1-43.9); Red Blood Count 4.35 M/mm3 (4.2-5.4); White Blood Count 6.7 K/mm3 (4.4-11.0)
[2023-01-23 14:35] LABS: ALB/GLOB Ratio 1.1 RATIO (0.9-2.4); AST(SGOT) 30 U/L (15-37); Alanine Aminotransfer ALT/SGPT 36 U/L (13-56); Albumin, Serum 3.2 g/dL (3.2-5.0); Alkaline Phosphatase 102 U/L (45-117); Anion Gap 6 (5-15); BUN 11 mg/dL (7-18); Calcium,Total 8.6 mg/dL (8.5-10.1); Chloride 110 mmol/L (98-107); Creatinine, Serum 0.91 mg/dL (0.55-1.02); EST Glomerular Filtration Rate 66 mL/min (>60); Est Glom Filt Rate - Afr Amer 80 mL/min (>60); Glucose 196 mg/dL (74-106); Potassium 3.9 mmol/L (3.5-5.1); Protein, Total 6.2 g/dL (6.4-8.2); Sodium Level 144 mmol/L (136-145); Thyroid Stim Hormone (TSH) 2.17 uIU/mL (0.358-3.74)
== END | disposition home or self-care (01) ==
LOC: LAB 12:55
PROVIDERS: PCP Family Medicine Geriatric Medicine; Referring Provider Family Medicine Geriatric Medicine; Visit Provider Family Medicine Geriatric Medicine
DX: E11.65 Type 2 diabetes mellitus with hyperglycemia (principal); I10 Essential (primary) hypertension
CPT/HCPCS: 36415; 80053; 84443; 85025

== ENCOUNTER → 2023-06-18 | Outpatient (CLI) | payer OTHER, SELFPAY ==
[2023-06-18 16:30] LABS: Absolute Lymphocyte Count 2.07 X10^3/uL (0.83-4.51); Absolute Neutrophil Count 3.4 X10^3/uL (2.0-7.7); Basophil# 0.03 X10^3/uL; Basophil% 0.5 % (0-1); Eosinophil# 0.13 X10^3/uL; Eosinophils% 2.2 % (0-5); Hematocrit 38.2 % (37-47); Hemoglobin 11.5 g/dL (12.0-15.0); Lymphocyte # 2.07 X10^3/ul (0.83-4.51); Lymphocyte % 34.5 % (19-41); Mean Corp Hgb Conc 30.1 g/dL (32-36); Mean Corpuscular Hgb 27.4 pg (27.0-32.0); Mean Platelet Vol. 10.7 fl (6.2-12.0); Monocyte# 0.37 X10^3/uL; Monocyte% 6.2 % (0-10); NRBC Flagged by Analyzer 0 % (0-5); Neutrophil # 3.38 X10^3/uL (2.7-7.7); Neutrophil % 56.3 % (47-70); Platelet Count 241 K/mm3 (150-450); RBC Distribution Width CV 14.8 % (11.6-14.6); RBC Distribution Width SD 49.5 fl (35.1-43.9)
[2023-06-18 16:52] LABS: Hemoglobin A1c 6.8 % (3.8-5.6)
[2023-06-18 16:54] LABS: International Normalized Ratio 0.9; Prothrombin Time (Protime)PT. 12.6 SECONDS (11.7-14.9)
[2023-06-18 17:15] LABS: ALB/GLOB Ratio 0.9 RATIO (0.9-2.4); AST(SGOT) 22 U/L (15-37); Alanine Aminotransfer ALT/SGPT 27 U/L (13-56); Albumin, Serum 3.3 g/dL (3.2-5.0); Alkaline Phosphatase 118 U/L (45-117); Anion Gap 5 (5-15); BUN 15 mg/dL (7-18); BUN/Creat Ratio 17.2 RATIO (10-20); Calcium,Total 9.2 mg/dL (8.5-10.1); Chloride 107 mmol/L (98-107); Creatinine, Serum 0.87 mg/dL (0.55-1.02); EST Glomerular Filtration Rate 70 mL/min (>60); Est Glom Filt Rate - Afr Amer 84 mL/min (>60); Globulin 3.5 g/dL (2.2-4.2); Glucose 103 mg/dL (74-106); Potassium 3.7 mmol/L (3.5-5.1); Protein, Total 6.8 g/dL (6.4-8.2); Sodium Level 142 mmol/L (136-145)
== END | disposition home or self-care (01) ==
LOC: POLAB3 16:06
PROVIDERS: PCP Family Medicine Geriatric Medicine; Visit Provider Family Medicine Geriatric Medicine
DX: Z01.818 Encounter for other preprocedural examination (principal)
CPT/HCPCS: 36415; 80053; 83036; 85025; 85610

== ENCOUNTER → 2023-10-02 | Outpatient (CLI) | payer OTHER, SELFPAY ==
[2023-10-02 16:22] LABS: Absolute Lymphocyte Count 2.71 X10^3/uL (0.83-4.51); Absolute Neutrophil Count 3.2 X10^3/uL (2.0-7.7); Basophil# 0.06 X10^3/uL; Basophil% 0.9 % (0-1); Eosinophil# 0.12 X10^3/uL; Eosinophils% 1.8 % (0-5); Hematocrit 38.5 % (37-47); Hemoglobin 11.7 g/dL (12.0-15.0); Lymphocyte # 2.71 X10^3/ul (0.83-4.51); Lymphocyte % 40.9 % (19-41); Mean Corp Hgb Conc 30.4 g/dL (32-36); Mean Corpuscular Hgb 28.1 pg (27.0-32.0); Mean Corpuscular Volume 92.5 fL (81-99); Mean Platelet Vol. 10.4 fl (6.2-12.0); Monocyte# 0.54 X10^3/uL; Monocyte% 8.2 % (0-10); NRBC Flagged by Analyzer 0 % (0-5); Neutrophil # 3.18 X10^3/uL (2.7-7.7); Platelet Count 267 K/mm3 (150-450); RBC Distribution Width CV 15.9 % (11.6-14.6); RBC Distribution Width SD 54.1 fl (35.1-43.9); Red Blood Count 4.16 M/mm3 (4.2-5.4); White Blood Count 6.6 K/mm3 (4.4-11.0)
[2023-10-02 17:02] LABS: ALB/GLOB Ratio 1.1 RATIO (0.9-2.4); AST(SGOT) 19 U/L (15-37); Alanine Aminotransfer ALT/SGPT 27 U/L (13-56); Albumin, Serum 3.5 g/dL (3.2-5.0); Alkaline Phosphatase 107 U/L (45-117); Anion Gap 3 (5-15); BUN 17 mg/dL (7-18); BUN/Creat Ratio 18.7 RATIO (10-20); Calcium,Total 9.3 mg/dL (8.5-10.1); Chloride 106 mmol/L (98-107); Creatinine, Serum 0.91 mg/dL (0.55-1.02); EST Glomerular Filtration Rate 66 mL/min (>60); Est Glom Filt Rate - Afr Amer 80 mL/min (>60); Globulin 3.3 g/dL (2.2-4.2); Glucose 86 mg/dL (74-106); Protein, Total 6.8 g/dL (6.4-8.2); Sodium Level 141 mmol/L (136-145); Thyroid Stim Hormone (TSH) 2.41 uIU/mL (0.358-3.74)
--- OUTSIDE RECORDS SUMMARY | 2023-10-02 19:00 | XMS RPT_ITS | CCD ---
Author Name Unknown Address [address] [place] [address] Organization [facility] Care Team Providers Care Post Doctoral Researcher Name Role Phone Treva Donaldson Unavailable Treva Donaldson Unavailable CASPER TRAN MD Consulting Unavailable SPITTLE, ARCELIA GUERRA Admitting Unavailable SPITTLE, ARCELIA DO Primary Care Unavailable SPITTLE, ARCELIA DO Attending Unavailable PROVIDER, UNKNOWN Consulting Unavailable PROVIDER, UNKNOWN Consulting Unavailable CASPER TRAN MD Consulting Unavailable SPITTLE, ARCELIA DO Admitting Unavailable SPITTLE, ARCELIA DO Primary Care Unavailable SPITTLE, ARCELIA DO Attending Unavailable PROVIDER, UNKNOWN Consulting Unavailable PROVIDER, UNKNOWN Consulting Unavailable CASPER TRAN MD Consulting Unavailable SHEROCK, ARCELIA Feng Admitting Unavailable SHEROCK, ARCELIA E Primary Care Unavailable SHERRORY, ARCELIA E Attending Unavailable PROVIDER, UNKNOWN Consulting Unavailable PROVIDER, UNKNOWN Consulting Unavailable Allergies Allergy Classification Reported Allergen(s) Allergy Type Date of Onset Reaction(s) Facility (2 sources) aspirin Drug Allergy 6 GI upset [facility] Work Phone: (2 sources) Sulfonamides (Antibiotic) drug allergy 6 [facility] Work Phone: (1 source) Aspirin Drug Allergy [facility] Repository (1 source) Sulfonamides (Antibiotic) Drug allergy (disorder) [facility]ository Medications Completed/Discontinued Medications Medication Drug Class(es) Dates Sig (Normalized) Sig (Original) ALPRAZolam 0.5 mg oral tablet (4 sources) Benzodiazepine Start: 01-22-2017 End: 01-24-2017 ALPRAZOLAM 0.5 MG TABS One tablet by mouth as needed ALPRAZOLAM [id number] Kayla Dane atorvastatin 80 mg oral tablet (4 sources) HMG-CoA Reductase Inhibitor Start: 01-22-2017 take 1 tablet by mouth once daily ATORVASTATIN CALCIUM 80 MG ORAL TABS (ATORVASTATIN CALCIUM) One tablet by mouth daily Gela Kong Problems Active Problems Problem Classification Problem Date Documented Da te Episodic/Chronic Osteoarthritis (1 source) Primary osteoarthritis, left shoulder; Translations: [Primary osteoarthritis, left shoulder] Onset: 08-20-2023 Chronic Other connective tissue disease (1 source) Impingement syndrome of left shoulder; Translations: [Impingement syndrome of left shoulder] Onset: 08-20-2023 Episodic Sprains and strains (3 sources) Strain of muscle(s) and tendon(s) of the rotator cuff of left shoulder, subsequent encounter; Translations: [Strain of muscle(s) and tendon(s) of the rotator cuff of left shoulder, subsequent encounter] Onset: 08-20-2023 Episodic Past or Other Problems Problem Classification Problem Date Documented Da te Episodic/Chronic Other connective tissue disease (4 sources) Subacromial bursitis; Translations: [Rotator cuff syndrome] Onset: 01-24-2017 02-07-2017 Episodic Other non-traumatic joint disorders (2 sources) Shoulder pain; Translations: [Pain in left shoulder] Onset: 01-24-2017 01-24-2017 Episodic Urinary tract infections (2 sources) Urinary tract infectious disease; Translations: [Urinary tract infection, site not specified] Onset: 06-26-2016 06-26-2016 Episodic Results Test Name Value Interpretation Reference Range Facil it Vital Signs Date Time Vital Sign Value Performing Clinician Facility 01-22-2017 13:59-0400 BMI (Body Mass Index) 54.44 kg/m2 [facility] Work Phone: 01-22-2017 13:59-0400 Body Temperature 98.7 [degF] [facility] Work Phone: 01-22-2017 13:59-0400 BP Diastolic 73 mm[Hg] [facility] Work Phone: 01-22-2017 13:59-0400 BP Systolic 128 mm[Hg] [facility] Work Phone: 01-22-2017 13:59-0400 Height 144.78 [facility] Work Phone: 01-22-2017 13:59-0400 Pulse (Heart Rate) 60 /min [facility] Work Phone: 01-22-2017 13:59-0400 Respiratory Rate 20 /min [facility] Work Phone: 01-22-2017 13:59-0400 [facility] Work Phone: 06-26-2016 09:48-0500 BSA (Body Surface Area) 2 m2 [facility] Work Phone: 06-26-2016 09:48-0500 [facility] 144.78 [facility] Work Phone: 06-26-2016 09:48-0500 Weight 116.91 kg [facility] Work Phone: Encounters Encounter Date Encounter Type Care Provider Facility Start: 08-20-2023 ambulatory CASPER KATHLEEN CHELSEA [facility] Start: 07-24-2023 End: 08-16-2023 ambulatory CASPER KATHLEEN CHELSEA [facility] Start: 06-28-2023 End: 06-28-2023 ambulatory CASPER KATHLEEN [facility] Procedures Date Procedure Procedure Detail Performing Clinician Start: 01-24-2017 End: 02-07-2017 Arthrocentesis aspir&/inj major jt/bursa w/o us Kallie Vela Work Phone: Plan of Treatment Date Care Activity Detail Author Start: 01-24-2017 End: 01-24-2017 Radex shoulder complete minimum 2 views X-Ray, Shoulder [facility] Work Phone: Payers Date Payer Category Payer Unknown [id number] 1960 Unknown [id number] 1960 Unknown [id number] Private Health Insurance [id number] Summary Purpose Family History No Family History Records Found Advance Directives No Advanced Directives Records Found Additional Source Comments INFORMATION SOURCE (unrecogn ized section and content) FOR RECORDS PERTAINING TO PATIENTS WHO ARE OR HAVE BEEN ENROLLED IN A CHEMICAL DEPENDENCY/SUBSTANCEABUSE PROGRAM, SOME INFORMATION MAY BE OMITTED. This clinical summary was aggregated from multiple sources. Caution should be exercised in using it in the provision of clinical care. This summary normalizes information from multiple sources, and as a consequence, information in this document may materially change the coding, format and clinical context of patient data. In addition, data may be omitted in some cases. CLINICAL DECISIONS SHOULD BE BASED ON THE PRIMARY CLINICAL RECORDS. [employer] [facility]. provides no warranty or guarantee of the accuracy or completeness of information in this document.
== END | disposition home or self-care (01) ==
LOC: LAB 15:40
PROVIDERS: PCP Family Medicine Geriatric Medicine; Referring Provider Family Medicine Geriatric Medicine; Visit Provider Family Medicine Geriatric Medicine
DX: I10 Essential (primary) hypertension (principal); E11.65 Type 2 diabetes mellitus with hyperglycemia
CPT/HCPCS: 36415; 80053; 84443; 85025

== ENCOUNTER → 2023-10-21 | Outpatient (CLI) | payer OTHER, SELFPAY ==
[2023-10-21 14:37] LABS: Absolute Lymphocyte Count 2.11 X10^3/uL (0.83-4.51); Absolute Neutrophil Count 3.8 X10^3/uL (2.0-7.7); Basophil# 0.02 X10^3/uL; Basophil% 0.3 % (0-1); Eosinophil# 0.11 X10^3/uL; Eosinophils% 1.7 % (0-5); Hematocrit 37.6 % (37-47); Hemoglobin 11.9 g/dL (12.0-15.0); Lymphocyte # 2.11 X10^3/ul (0.83-4.51); Lymphocyte % 32.6 % (19-41); Mean Corp Hgb Conc 31.6 g/dL (32-36); Mean Corpuscular Hgb 29.2 pg (27.0-32.0); Mean Corpuscular Volume 92.2 fL (81-99); Mean Platelet Vol. 10.7 fl (6.2-12.0); Monocyte# 0.42 X10^3/uL; Monocyte% 6.5 % (0-10); NRBC Flagged by Analyzer 0 % (0-5); Neutrophil # 3.79 X10^3/uL (2.7-7.7); Neutrophil % 58.6 % (47-70); Platelet Count 275 K/mm3 (150-450); RBC Distribution Width CV 15.8 % (11.6-14.6); RBC Distribution Width SD 53.7 fl (35.1-43.9); Red Blood Count 4.08 M/mm3 (4.2-5.4); White Blood Count 6.5 K/mm3 (4.4-11.0)
[2023-10-21 14:59] LABS: Ferritin 92 ng/mL (8-252); Iron 63 ug/dL (50-170); Iron Binding Capacity,Total 358 ug/dL (250-450); PERCENT IRON SATURATION 17.6 % (15.0-55.0)
== END | disposition home or self-care (01) ==
LOC: POLAB3 13:40
PROVIDERS: PCP Family Medicine Geriatric Medicine; Visit Provider Family Medicine Geriatric Medicine
DX: D64.9 Anemia, unspecified (principal); E11.65 Type 2 diabetes mellitus with hyperglycemia; I10 Essential (primary) hypertension
CPT/HCPCS: 36415; 82728; 82746; 83540; 83550; 85025

== ENCOUNTER → 2023-11-20 | Outpatient (CLI) | payer OTHER, SELFPAY ==
--- NOTE | 2023-11-20 15:55 | RAD_ITS ---
STUDY: X-RAY - LUMBAR SPINE REASON FOR EXAM: Female, 63 years old. Low back pain, unspecified TECHNIQUE: 5 view(s) of the lumbar spine were obtained. COMPARISON: December 05, 2021 report only. FINDINGS: Normal lumbar lordosis. There is mild dextroconvex scoliosis. Bridging osteophyte at L3-4 on the left. There is a normal alignment of the vertebrae. Compression fracture vertebral plasty again noted at T12. Normal vertebral bodies and endplates. Normal disc space heights. The soft tissue structures are unremarkable. RAD/L/S Spine Min 4 Views IMPRESSION: Compression fracture vertebral plasty T12 again noted. Mild dextroconvex scoliosis. Large bridging osteophyte at L3-4 on the left. Electronically Signed: Roland Swift MD at 17:10 EDT ,
== END | disposition home or self-care (01) ==
LOC: RAD 15:52
PROVIDERS: PCP Family Medicine Geriatric Medicine; Referring Provider Family Medicine Geriatric Medicine; Visit Provider Family Medicine Geriatric Medicine
DX: M54.50 Low back pain, unspecified (principal)
CPT/HCPCS: 72110

== ENCOUNTER 2023-12-31 11:20 | Day surgery (SDC) | payer OTHER, SELFPAY ==
[2023-12-31 11:39] VITALS: BP 138/64; PULSE 50; RESP 16; TEMP 36.1; O2SAT 100; BMI 42.7
[2023-12-31] MEDS: Lactated Ringers 1,000 ML 15 ML IV (11:50)
--- NOTE | 2023-12-31 12:30 | COLBX_PTH ---
PATIENT: LATISHA MOJICA LOC: EN U#:[id number] AGE/SX: 63/F ROOM: RE12/31/[address]: Dr. Farhan Lee MD : 1960 BED: DIS: 12/31/2023 SPEC #: [id number] RECD: 12/31/23 17:50 STATUS: CASSIA TASHI #: [id number] HILARIO: 12/31/23 12:[address]: Farhan Lee DEPT: SURGICAL PATHOLOGY RECD BY: Oscar Singh ENTERED: 01/01/24 12:02 SP TYPE: COLON BX OTHR DR: Dr. Brayden Roblero MD Tissues: A - Cecum, NOS B - COLON BIOPSY C - Sigmoid colon biopsy D - Sigmoid colon biopsy E - Rectum, NOS Procedures: Surgery Specimen Level IV HEADER OPERATION: Colonoscopy biopsy PRE-OP DIAGNOSIS: Encounter for screening for malignant neoplasm of colon TISSUE SUBMITTED: A- Cecal polyp biopsy, B- Abnormal mucosal fold 80cm biopsy, C- Sigmoid colon polyp biopsy, D- Sigmoid colon biopsy #2, E- Rectal polyp biopsy MICROSCOPIC DIAGNOSIS A. Cecal polyp, biopsy: Fragments of tubular adenoma. B. Colon at 80cm, biopsy: Fragments of hyperplastic polyp. C. Sigmoid colon polyp, biopsy: Fragments of hyperplastic polyp. D. Sigmoid colon polyp #2, biopsy: Fragments of colonic mucosa with focal hyperplastic change. E. Rectal polyp, biopsy: Fragments of hyperplastic polyp. / 01/02/2024 MICROSCOPIC DESCRIPTION Slides are reviewed. GROSS DESCRIPTION A. Received in fixative is one container labeled with the patient's name and designated Cecal polyp biopsy. The specimen consists of one irregular fragment of light angulo soft tissue that measures 0.5 x 0.3 x 0.1 cm. The specimen is totally submitted in one cassette. B. Received in fixative is one container labeled with the patient's name and designated Abnormal mucosal fold 80cm biopsy. The specimen consists of multiple irregular fragments of light angulo soft tissue that in aggregate measure 0.6 x 0.3 x 0.1 cm. The specimen is totally submitted in one cassette. C. Received in fixative is one container labeled with the patient's name and designated Sigmoid colon polyp. The specimen consists of multiple irregular fragments of light angulo soft tissue that in aggregate measure 0.8 x 0.5 x 0.1 cm. The specimen is totally submitted in one cassette. D. Received in fixative is one container labeled with the patient's name and designated Sigmoid colon polyp biopsy #2. The specimen consists of multiple irregular fragments of light angulo soft tissue that in aggregate measure 1.4 x 0.5 x 0.1 cm. The specimen is totally submitted in one cassette. E. Received in fixative is one container labeled with the patient's name and designated Rectal polyp biopsy. The specimen consists of multiple irregular fragments of light angulo soft tissue that in aggregate measure 1.0 x 0.4 x 0.1 cm. The specimen is totally submitted in one cassette. Anjali 01/01/2024 TC:5 CPT:31709v0
--- NOTE | 2023-12-31 12:43 | H&P.OPEN ---
[facility] - General General Date of Service: 12/31/23 HPI Narrative LATISHA MOJICA, is a 63 F who presents for screening colonoscopy. She confirms her preappointment questionnaire that she has not experienced any change in her bowel habits-and particularly denies any notice of blood. She does confirm that she underwent colonoscopy in 2009 and by her recollection this was a completely normal result. She shares a family history of Crohn's and her sister, colon cancer and several uncles (all of her age of 60) and diverticulitis and another uncle. Lastly she confirms that her prep was completed successfully and that her output is now clear. [facility] Medical History (Updated 12/26/23 @ 14:00 by Kathi Wilhelm) Wears glasses Wears dentures Anxiety History of steroid therapy Thyroid disease Arthritis Anemia High cholesterol History of hiatal hernia Leg cramps GERD (gastroesophageal reflux disease) History of stress test Hypothyroidism Hyperlipidemia Depression HTN (hypertension) Type 2 diabetes mellitus Home Medications ?Medication ?Instructions ?Recorded ?Last Taken ?Type citalopram 40 mg tablet 20 mg PO DAILY 05/26/20 12/31/23 History hydrochlorothiazide 25 mg tablet 25 mg PO DAILY 05/26/20 Unknown History levothyroxine 25 mcg tablet 25 mcg PO DAILY 05/26/20 12/31/23 History pioglitazone 15 mg-metformin 500 1 tab PO TID 05/26/20 Unknown History mg tablet propranolol 40 mg tablet 40 mg PO BID 05/26/20 12/31/23 History atorvastatin 80 mg tablet 80 mg PO QHS 12/17/23 Unknown History potassium chloride 20 mEq 20 meq PO DAILY 12/26/23 Unknown History tablet,extended release(part/cryst) Allergy/AdvReac Type Severity Reaction Status Date / Time Sulfa (Sulfonamide Allergy Mild rash Verified 12/31/23 11:38 Antibiotics) aspirin Allergy kick in Verified 12/31/23 11:38 stomach Family History (Updated 12/17/23 @ 12:54 by Charlotte Hill) Uncle Colon cancer, Onset Age: 60 Surgical History Hx of appendectomy Hx of bladder repair surgery Hx of tubal ligation History of shoulder surgery Hx of colonoscopy Social History (Updated 12/17/23 @ 12:58 by Charlotte Hill) current occupational status: retired Smoking Status: Former smoker substance use type: does not use Past Medical/Surgical History Planned Operation Planned Operative Procedure/s: cscope Previous Hospitalizations/Surgeries HX Hospitalizations: No Any Problems With Anesthesia: No You/Your Family Experience Fever (Hyperthermia) With Anes: No Cholinesterase deficiency: No Cardiovascular Hx Chest Pain within Last 2 months: No Hx Heart Attack: No Hx Hypertension: Yes (controlled with med) Hx Cardiac Surgery/Stents/Etc.: No Respiratory Hx Chronic Obstructive Pulmonary Disease (COPD): No Hx Sleep Apnea: No Hx Respiratory Tract Infection/Cold (presently): No Do You Snore Loudly (louder than talking or can be heard): No Do You Often Feel Tired/ Fatigued/ Sleepy Dring Daytime?: No Has Anyone Observed You Stop Breathing During Sleep?: No Result (for STOP score): Negative Hx Smoking: No Smoking Status: Former smoker Gastrointestinal Special diet followed at home: No Neurological Hx Seizures: No Hx Multiple Sclerosis: No Does patient have nerve stimulator: No Blood Disorder Hx High Cholesterol: Yes Hx Anemia: No Reproduction : No Genitourinary Hx Renal Disease: No Hx Dialysis: No Musculoskeletal Hx Arthritis: Yes Hx Rheumatoid Arthritis: No Endocrine Hx Diabetes: Yes (1-5 yrs) Thyroid Disease: No Psycho/Social Hx Depression: No Miscellaneous Hx Cancer: No Recent Exposure to Contagious Disease: No Allergies Sulfa (Sulfonamide Antibiotics) Allergy (Mild, Verified 12/31/23 11:38) rash aspirin Allergy (Verified 12/31/23 11:38) kick in stomach Discharge Is Pt Admitted From a Detention, or a Correction: No After D/C, Where Do you Plan to Go: Return Home From the [facility] History Number of Risk Factors: 2 Vital Signs Vital Signs Vital Signs: 12/31/23 11:39 12/31/23 11:39 Temperature 97 F L Temperature Source Temporal Pulse Rate 50 L Respiratory Rate 16 Respiratory Pattern Normal Blood Pressure 138/64 H Blood Pressure Mean 88 Blood Pressure Source Monitor Blood Pressure Position Semi-Fowlers Blood Pressure Location Right Arm Pulse Ox 100 Oxygen Delivery Method Room Air Weight Weight: 273 lb 2.444 oz Body Mass Index (BMI) 42.7 Physical Exam Const alert, oriented x3 and no apparent distress Resp normal respiratory effort GI GI Narrative: Obese, nondistended, soft, nontender to palpation x 4 quadrants Assessment & Plan Assessment/Plan (1) Encounter for screening for malignant neoplasm of colon: PLAN: Patient is a 63-year-old female presents for screening colonoscopy which is an update from an exam last performed in 2009. She confirms that exam was unremarkable and its findings. Interestingly, she does report a family history of inflammatory bowel disease, colon cancer, and diverticulitis. However, none of these were early onset diagnoses and therefore her risk for colon cancer should not be significantly above average. She did complete a prep in anticipation of today's procedure and the details of the procedure were discussed. All questions were answered will now proceed with planned colonoscopy. Surgery Risks - Colonoscopy Risks Include but are not Limited To: Risks include but are not limited to: Bleeding, perforation requiring further surgery, inability to complete colonoscopy requiring barium enema.
[2023-12-31 13:45] VITALS: BP 123/66; BP 138/64; PULSE 47; RESP 16; TEMP 36.3; O2SAT 99
[2023-12-31 13:45] LABS: Bedside Glucose 88 mg/dL (74-106)
--- NOTE | 2023-12-31 13:46 | OP.CCLET_ITS ---
12/31/2023 Brayden Roblero MD [address] [place] [address] Re : Colonoscopy procedure for Margareth Ro Dear Dr. Roblero This procedure was performed on Sunday, December 31, 2023. My impressions and recommendations are as follows: Impressions : - One 2 mm, non-bleeding polyp in the cecum. Biopsied. - Congested mucosa in the descending colon. Biopsied. - One 5 mm polyp in the sigmoid colon. Biopsied. - One 3 mm polyp in the rectum. Biopsied. - Diverticulosis in the sigmoid colon. No specimens collected. Recommendations : - Discharge patient to home (via wheelchair). - High fiber diet today. - Continue present medications. - Await pathology results. - Repeat colonoscopy date to be determined after pending pathology results are reviewed for surveillance based on pathology results. - Telephone my office for pathology results in 1 week. My findings are described in the full procedure note, which is enclosed. If I can be of further assistance, please feel free to contact me at Doctor phone number(s): , Work: . Sincerely, Farhan Lee MD 12/31/2023 1:46:19 PM This report has been signed electronically.
--- NOTE | 2023-12-31 13:46 | OP.COLON_ITS ---
Patient Name: Margareth Ro Procedure Date: 12/31/2023 12:36 PM Date of : 1960 Age: 63 Procedure: Colonoscopy Indications: Screening for colorectal malignant neoplasm Providers: Farhan Lee MD Referring MD: Brayden Roblero MD Medicines: See the Anesthesia note for documentation of the administered medications Patient Profile: Last Colonoscopy: more than 10 years ago. Complications: No immediate complications. Estimated blood loss: Minimal. Procedure: Pre-Anesthesia Assessment: - The heart rate, respiratory rate, oxygen saturations, blood pressure, adequacy of pulmonary ventilation, and response to care were monitored throughout the procedure. After I obtained informed consent, the scope was passed under direct vision. Throughout the procedure, the patient's blood pressure, pulse, and oxygen saturations were monitored continuously. The colonoscope was introduced through the anus and advanced to the cecum, identified by its appearance. The colonoscopy was somewhat difficult due to a tortuous colon. Successful completion of the procedure was aided by using manual pressure. The patient tolerated the procedure well. The quality of the bowel preparation was adequate to identify polyps greater than 5 mm in size. Scope In: 12:54:01 PM Scope Withdrawal Time 0 hours 25 minutes 44 seconds Scope Out: 1:36:09 PM Total Procedure Duration Time 0 hours 42 minutes 8 seconds Findings: The perianal and digital rectal examinations were normal. A 2 mm, non-bleeding polyp was found in the cecum. The polyp was semi-sessile. Biopsies were taken with a cold forceps for histology. Estimated blood loss was minimal. An area of mildly congested mucosa was found in the descending colon. Biopsies were taken with a cold forceps for histology. Estimated blood loss was minimal. A 5 mm polyp was found in the sigmoid colon. The polyp was semi-sessile. Biopsies were taken with a cold forceps for histology. Estimated blood loss was minimal. A 3 mm polyp was found in the rectum. The polyp was semi-sessile. Biopsies were taken with a cold forceps for histology. Estimated blood loss was minimal. No additional abnormalities were found on retroflexion. Many small and large-mouthed diverticula were found in the sigmoid colon. No biopsies or other specimens were collected for this exam. Impression: - One 2 mm, non-bleeding polyp in the cecum. Biopsied. - Congested mucosa in the descending colon. Biopsied. - One 5 mm polyp in the sigmoid colon. Biopsied. - One 3 mm polyp in the rectum. Biopsied. - Diverticulosis in the sigmoid colon. No specimens collected. Recommendation: - Discharge patient to home (via wheelchair). - High fiber diet today. - Continue present medications. - Await pathology results. - Repeat colonoscopy date to be determined after pending pathology results are reviewed for surveillance based on pathology results. - Telephone my office for pathology results in 1 week. Procedure Code(s): --- Professional --- 85796, Colonoscopy, flexible; with biopsy, single or multiple Diagnosis Code(s): --- Professional --- Z12.11, Encounter for screening for malignant neoplasm of colon D12.0, Benign neoplasm of cecum D12.5, Benign neoplasm of sigmoid colon D12.8, Benign neoplasm of rectum K63.89, Other specified diseases of intestine K57.30, Diverticulosis of large intestine without perforation or abscess without bleeding CPT copyright 2021 [employer]. All rights reserved. The codes documented in this report are preliminary and upon renewable energy engineer review may be revised to meet current compliance requirements. Farhan Lee MD 12/31/2023 1:46:19 PM This report has been signed electronically. Number of Addenda: 0 Note Initiated On: 12/31/2023 12:36 PM
[2023-12-31 13:50] VITALS: BP 138/64; BP 139/64; PULSE 45; RESP 16; O2SAT 100
[2023-12-31 13:55] VITALS: BP 137/67; BP 138/64; PULSE 45; RESP 16; TEMP 36.4; O2SAT 99
[2023-12-31 13:58] VITALS: BP 138/64
== END 2023-12-31 14:38 | disposition home or self-care (01) ==
LOC: EN 11:21 → AC 11:25
PROVIDERS: PCP Family Medicine Geriatric Medicine; Referring Provider Family Medicine Geriatric Medicine; Visit Provider Surgery
PROC: 0DJD8ZZ Inspection of Lower Intestinal Tract, Via Natural or Artificial Opening Endoscopic (ICD-10-PCS; CPT 45378; principal; 2023-12-31 12:25)
DX: Z12.11 Encounter for screening for malignant neoplasm of colon (principal); E11.9 Type 2 diabetes mellitus without complications; K57.30 Diverticulosis of large intestine without perforation or abscess without bleeding; Z80.0 Family history of malignant neoplasm of digestive organs; E78.5 Hyperlipidemia, unspecified; K63.89 Other specified diseases of intestine; Z87.891 Personal history of nicotine dependence; I10 Essential (primary) hypertension; K21.9 Gastro-esophageal reflux disease without esophagitis; E03.9 Hypothyroidism, unspecified; D12.0 Benign neoplasm of cecum; D12.8 Benign neoplasm of rectum; D12.5 Benign neoplasm of sigmoid colon
CPT/HCPCS: 45380; 82962; 88305; J7120; J2405

== ENCOUNTER → 2024-02-25 | Outpatient (CLI) | payer OTHER, SELFPAY ==
--- NOTE | 2024-02-25 16:11 | RAD_ITS ---
EXAM: XR THORACIC SPINE, 3 VIEWS CLINICAL INDICATION: NECK,THORACIC BACK, AND LOWER BACK PAIN, BILATERAL TECHNIQUE: Frontal, lateral and swimmer''s views of the thoracic spine. COMPARISON: Lumbar spine radiographs, 11/20/2023. Thoracic spine radiographs, 12/22/2020. FINDINGS: VERTEBRAE: Multilevel facet and endplate osteophytosis. Chronic T12 fractures status post vertebral augmentation. No spondylolisthesis. Preservation of the normal thoracic kyphosis. No acute fracture or traumatic subluxation. DISC SPACES: Multilevel intervertebral disc height loss. Scattered vacuum phenomenon. RAD/Thoracic Spine 3 Views IMPRESSION: No acute fracture or traumatic subluxation. Multilevel degenerative changes. Chronic T12 fracture status post augmentation. Electronically Signed: Jong Sims DO at 23:43 EDT ,
--- NOTE | 2024-02-25 16:12 | RAD_ITS ---
INDICATION: Neck, thoracic BACK, AND LOWER BACK PAIN, BILATERAL EXAMINATION/TECHNIQUE: X-RAY - XR Hips Bilateral with Pelvis when performed; 2 Views COMPARISON: May 05, 2019 FINDINGS: PELVIC BONES: No displaced fracture, destructive or sclerotic lesions. Note that overlapping bowel shadows may however obscure fine detail. Sacroiliac joints are unremarkable. No widening of the pubic symphysis. HIPS: There are mild degenerative changes of the hips characterized by joint space narrowing and subchondral sclerosis. SOFT TISSUES: No soft tissue swelling or gas. RAD/Hips B/L min 2 views w/ Pelvis IMPRESSION: Degenerative changes of the hips. Electronically Signed: Princess Rosales MD at 8:50 EDT ,
--- NOTE | 2024-02-25 16:12 | RAD_ITS ---
HISTORY: NECK,THORACIC BACK, AND LOWER BACK PAIN, BILATERAL. TECHNIQUE: XR Spine Lumbar Min 4 Views. COMPARISON: 11/20/2023. FINDINGS: VERTEBRAE: Chronic lower thoracic compression fractures with T12 vertebroplasty. Lumbar vertebral body heights maintained. Bridging osteophyte at L3-4. ALIGNMENT: Mild anterolisthesis of L3-4. Chronic mild dextroscoliosis. INTERVERTEBRAL DISCS: Degenerative changes with intervertebral disc space narrowing of L3-4 and L5-S1. RAD/L/S Spine Min 4 Views IMPRESSION: No acute fracture or dislocation identified in the lumbar spine. Multilevel degenerative changes as above. Electronically Signed: Blossom Saucedo MD at 8:46 EDT ,
--- NOTE | 2024-02-25 16:20 | RAD_ITS ---
STUDY: X-RAY - CERVICAL SPINE REASON FOR EXAM: Female, 63 years old. Neck and back pain. TECHNIQUE: 3 view(s) of the cervical spine were obtained. COMPARISON: None FINDINGS: Normal anterior atlantoaxial articulation. Normal odontoid process. Normal cervical lordosis. Diffuse mild uncovertebral and facet sclerosis. Mild intervertebral disc space narrowing at C6-7 with small osteophytes. 2 mm of anterolisthesis of C5 on C4 and C6 and C5. Ossification of the ligamentum nuchae. RAD/Cerv Spine 2 or 3 Views IMPRESSION: Mild predominantly lower cervical spondylosis. No acute abnormality. Electronically Signed: David Cagle MD at 9:48 EDT ,
== END | disposition home or self-care (01) ==
LOC: RAD 16:02
PROVIDERS: PCP Family Medicine Geriatric Medicine; Referring Provider Family Medicine Geriatric Medicine; Visit Provider Family Medicine Geriatric Medicine
DX: M54.2 Cervicalgia (principal); M54.6 Pain in thoracic spine; M25.551 Pain in right hip; M54.50 Low back pain, unspecified; M25.552 Pain in left hip
CPT/HCPCS: 72040; 72072; 72110; 73521

== ENCOUNTER → 2024-03-30 | Outpatient (CLI) | payer OTHER, SELFPAY ==
[2024-03-30 14:11] LABS: Absolute Lymphocyte Count 2.34 X10^3/uL (0.83-4.51); Absolute Neutrophil Count 3.6 X10^3/uL (2.0-7.7); Basophil# 0.02 X10^3/uL; Basophil% 0.3 % (0-1); Eosinophil# 0.06 X10^3/uL; Eosinophils% 0.9 % (0-5); Hemoglobin 11.8 g/dL (12.0-15.0); Lymphocyte # 2.34 X10^3/ul (0.83-4.51); Lymphocyte % 35.2 % (19-41); Mean Corp Hgb Conc 31.1 g/dL (32-36); Mean Corpuscular Hgb 29.2 pg (27.0-32.0); Mean Corpuscular Volume 94.1 fL (81-99); Mean Platelet Vol. 9.9 fl (6.2-12.0); Monocyte# 0.57 X10^3/uL; Monocyte% 8.6 % (0-10); NRBC Flagged by Analyzer 0 % (0-5); Neutrophil # 3.62 X10^3/uL (2.7-7.7); Neutrophil % 54.5 % (47-70); Platelet Count 286 K/mm3 (150-450); RBC Distribution Width CV 15.9 % (11.6-14.6); RBC Distribution Width SD 55.1 fl (35.1-43.9); Red Blood Count 4.04 M/mm3 (4.2-5.4); White Blood Count 6.6 K/mm3 (4.4-11.0)
[2024-03-30 14:54] LABS: AST(SGOT) 25 U/L (15-37); Alanine Aminotransfer ALT/SGPT 27 U/L (13-56); Albumin, Serum 3.4 g/dL (3.2-5.0); Alkaline Phosphatase 102 U/L (45-117); Anion Gap 3 (5-15); BUN 17 mg/dL (7-18); BUN/Creat Ratio 19.3 RATIO (10-20); Calcium,Total 9.2 mg/dL (8.5-10.1); Chloride 103 mmol/L (98-107); Creatinine, Serum 0.88 mg/dL (0.55-1.02); EST Glomerular Filtration Rate 69 mL/min (>60); Est Glom Filt Rate - Afr Amer 83 mL/min (>60); Globulin 3.4 g/dL (2.2-4.2); Glucose 99 mg/dL (74-106); Potassium 4.1 mmol/L (3.5-5.1); Protein, Total 6.8 g/dL (6.4-8.2); Sodium Level 138 mmol/L (136-145); Thyroid Stim Hormone (TSH) 4.03 uIU/mL (0.358-3.74)
== END | disposition home or self-care (01) ==
LOC: POLAB3 13:58
PROVIDERS: PCP Family Medicine Geriatric Medicine; Visit Provider Family Medicine Geriatric Medicine
DX: E11.65 Type 2 diabetes mellitus with hyperglycemia (principal); I10 Essential (primary) hypertension
CPT/HCPCS: 36415; 80053; 84443; 85025

== ENCOUNTER → 2024-06-09 | Outpatient (CLI) | payer OTHER, SELFPAY | END | disposition home or self-care (01) | LOC: LAB 13:44 | PROVIDERS: PCP Family Medicine Geriatric Medicine; Referring Provider Family Medicine Geriatric Medicine; Visit Provider Family Medicine Geriatric Medicine | DX: E03.9 Hypothyroidism, unspecified (principal) | CPT/HCPCS: 36415; 84443 ==

== ENCOUNTER → 2024-06-29 | Outpatient (CLI) | payer OTHER, SELFPAY ==
[2024-06-29 14:27] LABS: Absolute Lymphocyte Count 2.45 X10^3/uL (0.83-4.51); Absolute Neutrophil Count 3.4 X10^3/uL (2.0-7.7); Basophil# 0.03 X10^3/uL; Basophil% 0.5 % (0-1); Eosinophil# 0.06 X10^3/uL; Eosinophils% 0.9 % (0-5); Hematocrit 40.5 % (37-47); Hemoglobin 12.7 g/dL (12.0-15.0); Lymphocyte # 2.45 X10^3/ul (0.83-4.51); Lymphocyte % 37.9 % (19-41); Mean Corp Hgb Conc 31.4 g/dL (32-36); Mean Corpuscular Hgb 28.7 pg (27.0-32.0); Mean Corpuscular Volume 91.6 fL (81-99); Mean Platelet Vol. 10.2 fl (6.2-12.0); Monocyte# 0.54 X10^3/uL; Monocyte% 8.3 % (0-10); NRBC Flagged by Analyzer 0 % (0-5); Neutrophil # 3.37 X10^3/uL (2.7-7.7); Neutrophil % 52.1 % (47-70); Platelet Count 273 K/mm3 (150-450); RBC Distribution Width CV 14.6 % (11.6-14.6); RBC Distribution Width SD 48.9 fl (35.1-43.9); Red Blood Count 4.42 M/mm3 (4.2-5.4); White Blood Count 6.5 K/mm3 (4.4-11.0)
[2024-06-29 14:58] LABS: Hemoglobin A1c 5.9 % (3.8-5.6)
[2024-06-29 15:15] LABS: ALB/GLOB Ratio 1.2 RATIO (0.9-2.4); AST(SGOT) 24 U/L (15-37); Alanine Aminotransfer ALT/SGPT 34 U/L (13-56); Albumin, Serum 3.8 g/dL (3.2-5.0); Alkaline Phosphatase 94 U/L (45-117); Anion Gap 5 (5-15); BUN 13 mg/dL (7-18); Calcium,Total 9.2 mg/dL (8.5-10.1); Chloride 103 mmol/L (98-107); Creatinine, Serum 1.08 mg/dL (0.55-1.02); EST Glomerular Filtration Rate 54 mL/min (>60); Est Glom Filt Rate - Afr Amer 66 mL/min (>60); Globulin 3.3 g/dL (2.2-4.2); Glucose 97 mg/dL (74-106); Protein, Total 7.1 g/dL (6.4-8.2); Sodium Level 138 mmol/L (136-145)
== END | disposition home or self-care (01) ==
LOC: POLAB3 14:00
PROVIDERS: PCP Family Medicine Geriatric Medicine; Visit Provider Family Medicine Geriatric Medicine
DX: E11.65 Type 2 diabetes mellitus with hyperglycemia (principal); I10 Essential (primary) hypertension
CPT/HCPCS: 36415; 80053; 83036; 84443; 85025

== ENCOUNTER → 2024-08-10 | Outpatient (CLI) | payer OTHER, SELFPAY ==
--- NOTE | 2024-08-10 15:42 | CT_ITS ---
EXAM: CT HEAD WITHOUT INTRAVENOUS CONTRAST CLINICAL INDICATION: DIZZINESS, Headache, unspecified TECHNIQUE: Multiple axial images were obtained of the head without intravenous contrast. This CT exam was performed using one or more of the following dose reduction techniques: automated exposure control, adjustment of the mA and/or kV according to patient size, and/or use of iterative reconstruction technique. RADIATION DOSE: CTDIvol = 47.06 mGy, DLP = 925.62 mGy-cm COMPARISON: Head CT 09/04/2006 FINDINGS: BRAIN AND EXTRA-AXIAL SPACES: Unremarkable. No intra- or extra-axial hemorrhage. No evidence of acute infarct. No intracranial mass or mass effect. There is preservation of the shore/white matter interface. Posterior fossa structures are unremarkable. Ventricles are appropriate for age. No hydrocephalus. Basal cisterns are patent. BONES/JOINTS: Unremarkable. No discrete lytic or blastic abnormalities. SINUSES: Unremarkable as visualized. Clear. MASTOID AIR CELLS: Unremarkable. Clear. ORBITS: Visualized globes, extraocular muscles, optic nerves and retrobulbar fat appear unremarkable. CT/Brain/Head without Contrast IMPRESSION: Negative head/brain CT without intravenous contrast. Electronically Signed: Jakob Pino MD at 23:05 EST ,
[2024-08-10 16:31] LABS: Absolute Lymphocyte Count 2.59 X10^3/uL (0.83-4.51); Basophil# 0.03 X10^3/uL; Basophil% 0.4 % (0-1); Eosinophil# 0.04 X10^3/uL; Eosinophils% 0.6 % (0-5); Hematocrit 39.8 % (37-47); Hemoglobin 12.7 g/dL (12.0-15.0); Lymphocyte # 2.59 X10^3/ul (0.83-4.51); Mean Corp Hgb Conc 31.9 g/dL (32-36); Mean Corpuscular Hgb 29.4 pg (27.0-32.0); Mean Corpuscular Volume 92.1 fL (81-99); Mean Platelet Vol. 9.8 fl (6.2-12.0); Monocyte# 0.54 X10^3/uL; Monocyte% 7.5 % (0-10); NRBC Flagged by Analyzer 0 % (0-5); Neutrophil # 3.98 X10^3/uL (2.7-7.7); Neutrophil % 55.2 % (47-70); Platelet Count 281 K/mm3 (150-450); RBC Distribution Width CV 15.6 % (11.6-14.6); RBC Distribution Width SD 52.4 fl (35.1-43.9); Red Blood Count 4.32 M/mm3 (4.2-5.4); White Blood Count 7.2 K/mm3 (4.4-11.0)
[2024-08-10 17:38] LABS: ALB/GLOB Ratio 1.2 RATIO (0.9-2.4); AST(SGOT) 23 U/L (15-37); Alanine Aminotransfer ALT/SGPT 31 U/L (13-56); Albumin, Serum 3.7 g/dL (3.2-5.0); Alkaline Phosphatase 95 U/L (45-117); Anion Gap 3 (5-15); BUN 11 mg/dL (7-18); BUN/Creat Ratio 12.3 RATIO (10-20); Calcium,Total 9.4 mg/dL (8.5-10.1); Chloride 104 mmol/L (98-107); Creatinine, Serum 0.89 mg/dL (0.55-1.02); EST Glomerular Filtration Rate 68 mL/min (>60); Est Glom Filt Rate - Afr Amer 82 mL/min (>60); Globulin 3.1 g/dL (2.2-4.2); Glucose 100 mg/dL (74-106); Potassium 3.8 mmol/L (3.5-5.1); Protein, Total 6.8 g/dL (6.4-8.2); Sodium Level 138 mmol/L (136-145)
== END | disposition home or self-care (01) ==
PROVIDERS: PCP Family Medicine Geriatric Medicine; Referring Provider Family Medicine Geriatric Medicine; Visit Provider Family Medicine Geriatric Medicine
DX: R42 Dizziness and giddiness (principal); R51.9 Headache, unspecified; I10 Essential (primary) hypertension; N39.0 Urinary tract infection, site not specified
CPT/HCPCS: 36415; 70450; 80053; 85025; 87086; 87088

== ENCOUNTER 2024-08-14 10:24 | Outpatient (CLI) | payer OTHER, SELFPAY ==
[2024-08-14 10:33] VITALS: BP 158/75; PULSE 60; RESP 16; TEMP 35.8; O2SAT 98; BMI 40.7
[2024-08-14] MEDS: 0.9% NaCl Peripheral Flush Adult/Peds IV (10:43)
[2024-08-14] MEDS: 0.9% Normal Saline (1000mL) 1,000 ML 999 ML IV ×2 (10:44→11:48)
[2024-08-14 12:56] VITALS: BP 147/77; PULSE 55; RESP 16; TEMP 35.9; O2SAT 100
== END 2024-08-14 23:59 | disposition home or self-care (01) ==
LOC: MEDOUTP 10:25
PROVIDERS: PCP Family Medicine Geriatric Medicine; Referring Provider Family Medicine Geriatric Medicine; Visit Provider Family Medicine Geriatric Medicine
DX: I95.1 Orthostatic hypotension (principal)
CPT/HCPCS: 96360; 96361; A4216

== ENCOUNTER → 2024-10-05 | Outpatient (CLI) | payer OTHER, SELFPAY ==
[2024-10-05 16:17] LABS: Absolute Lymphocyte Count 2.52 X10^3/uL (0.83-4.51); Absolute Neutrophil Count 3.8 X10^3/uL (2.0-7.7); Basophil# 0.03 X10^3/uL; Basophil% 0.4 % (0-1); Eosinophil# 0.05 X10^3/uL; Eosinophils% 0.7 % (0-5); Hematocrit 39.5 % (37-47); Hemoglobin 12.4 g/dL (12.0-15.0); Lymphocyte # 2.52 X10^3/ul (0.83-4.51); Lymphocyte % 36.7 % (19-41); Mean Corp Hgb Conc 31.4 g/dL (32-36); Mean Corpuscular Hgb 28.8 pg (27.0-32.0); Mean Corpuscular Volume 91.6 fL (81-99); Monocyte# 0.46 X10^3/uL; Monocyte% 6.7 % (0-10); NRBC Flagged by Analyzer 0 % (0-5); Neutrophil # 3.78 X10^3/uL (2.7-7.7); Neutrophil % 55.2 % (47-70); Platelet Count 276 K/mm3 (150-450); RBC Distribution Width CV 15.1 % (11.6-14.6); RBC Distribution Width SD 51.3 fl (35.1-43.9); Red Blood Count 4.31 M/mm3 (4.2-5.4); White Blood Count 6.9 K/mm3 (4.4-11.0)
[2024-10-05 17:32] LABS: Vitamin D,25 Hydroxy 33.5 ng/mL
[2024-10-05 17:38] LABS: AST(SGOT) 23 U/L (15-37); Alanine Aminotransfer ALT/SGPT 28 U/L (13-56); Albumin, Serum 3.6 g/dL (3.2-5.0); Alkaline Phosphatase 85 U/L (45-117); Anion Gap 6 (5-15); BUN 11 mg/dL (7-18); BUN/Creat Ratio 11.5 RATIO (10-20); Calcium,Total 9.4 mg/dL (8.5-10.1); Chloride 103 mmol/L (98-107); Creatinine, Serum 0.96 mg/dL (0.55-1.02); EST Glomerular Filtration Rate 62 mL/min (>60); Est Glom Filt Rate - Afr Amer 75 mL/min (>60); Globulin 3.6 g/dL (2.2-4.2); Glucose 101 mg/dL (74-106); Protein, Total 7.2 g/dL (6.4-8.2); Sodium Level 138 mmol/L (136-145)
== END | disposition home or self-care (01) ==
LOC: LAB 15:31
PROVIDERS: PCP Family Medicine Geriatric Medicine; Referring Provider Family Medicine Geriatric Medicine; Visit Provider Family Medicine Geriatric Medicine
DX: E11.65 Type 2 diabetes mellitus with hyperglycemia (principal); E55.9 Vitamin D deficiency, unspecified; I10 Essential (primary) hypertension
CPT/HCPCS: 36415; 80053; 82306; 84443; 85025

== ENCOUNTER → 2024-10-07 | Outpatient (CLI) | payer OTHER, SELFPAY | END | disposition home or self-care (01) | PROVIDERS: PCP Family Medicine Geriatric Medicine; Referring Provider Family Medicine Geriatric Medicine; Visit Provider Family Medicine Geriatric Medicine | DX: E24.9 Cushing's syndrome, unspecified (principal) | CPT/HCPCS: 36415; 82533 ==

== ENCOUNTER → 2024-12-01 | Outpatient (CLI) | payer OTHER, SELFPAY | END | disposition home or self-care (01) | PROVIDERS: PCP Family Medicine Geriatric Medicine; Referring Provider Family Medicine Geriatric Medicine; Visit Provider Family Medicine Geriatric Medicine | DX: R05.9 Cough, unspecified (principal); R06.2 Wheezing | CPT/HCPCS: 87631 ==

== ENCOUNTER → 2025-02-18 | Outpatient (CLI) | payer OTHER, SELFPAY | END | disposition home or self-care (01) | LOC: CVS 13:45 | PROVIDERS: PCP Family Medicine Geriatric Medicine; Referring Provider Family Medicine Geriatric Medicine; Visit Provider Family Medicine Geriatric Medicine | DX: M79.601 Pain in right arm (principal) | CPT/HCPCS: 93971 ==

== ENCOUNTER → 2025-04-01 | Outpatient (CLI) | payer OTHER, SELFPAY ==
[2025-04-01 15:10] LABS: Hematocrit 37.7 % (37-47); Hemoglobin 12.6 g/dL (12.0-15.0); Immature Granulocytes Count 0.020 X10^3/uL (0.0-0.0); Mean Corp Hgb Conc 33.4 g/dL (32-36); Mean Corpuscular Volume 86.5 fL (81-99); Mean Platelet Vol. 10.2 fl (6.2-12.0); NRBC Flagged by Analyzer 0 % (0-5); Platelet Count 243 K/mm3 (150-450); RBC Distribution Width CV 15.5 % (11.6-14.6); RBC Distribution Width SD 49.3 fl (35.1-43.9); Red Blood Count 4.36 M/mm3 (4.2-5.4); White Blood Count 5.5 K/mm3 (4.4-11.0)
[2025-04-01 16:14] LABS: AST(SGOT) 28 U/L (<=31); Alanine Aminotransfer ALT/SGPT 25 U/L (<=34); Albumin, Serum 4.2 g/dL (3.4-4.8); Alkaline Phosphatase 93 U/L (35-104); Anion Gap 12 (5-15); BUN 11 mg/dL (4-19); BUN/Creat Ratio 11.4 RATIO (10-20); Calcium,Total 9.6 mg/dL (7.6-11.0); Carbon Dioxide 26.0 mmol/L (21.0-32.0); Chloride 95 mmol/L (98-108); Globulin 2.5 g/dL (2.2-4.2); Glucose 110 mg/dL (70-99); Potassium 4.3 mmol/L (3.3-5.1); Vitamin D,25 Hydroxy 27.1 ng/mL (30-100)
[2025-04-01 22:15] LABS: Xtra Tube Kwok EXTRA TUBE
== END | disposition home or self-care (01) ==
LOC: POLAB3 14:15
PROVIDERS: PCP Family Medicine Geriatric Medicine; Visit Provider Family Medicine Geriatric Medicine
DX: E11.65 Type 2 diabetes mellitus with hyperglycemia (principal); I10 Essential (primary) hypertension; E55.9 Vitamin D deficiency, unspecified
CPT/HCPCS: 36415; 80053; 82306; 83036; 84443; 85025